=== PATIENT | male | born 1990 | race Two or more races ===

== ENCOUNTER 2024-08-25 11:07 | Outpatient (AMB) | payer OTHER, SELFPAY ==
--- NOTE | 2024-08-25 11:10 | MHC.PC.OV ---
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 Intake Note: patient here for new patient visit [employer] Required: No Allergies cefaclor [From Ceclor] Allergy (Mild, Verified 08/25/24 11:44) hives Medication List - Last Reconciled 08/25/24 by Baldomero Kaiser CNP clonidine 1 patch topical QWEEK valsartan 80 mg PO DAILY Tobacco use date assessed: 08/25/24 Dental Screening Dental Screen Date: 08/25/24 Did you have a dental visit in the last 12 months?: No Did you have a dental problem in the last 6 months where you did not have access to dental care?: No Was dental information given to patient?: Yes HPI HPI Comments History of Present Illness Details 34-year-old male presents to [facility]. Prior PCP? - [facility] Last office visit and labs - 02/2024 Acute issue(s) - HTN: He is on valsartan 80 mg daily and clonidine 0.2 mg patch weekly Past Medical History - Hypertension, GERD, polycystic kidney disease, myopia, anxiety (controlled, never been on meds, no psych hosp, no therapist or psychiatrist) Surgical History - None Family History - Dad: Alcohol abuse - MGM: She has diabetes Social History - Nonsmoker. Does not vape. Drinks 4 mixed drinks once weekly. Smokes 0.5-1g cannabis daily - Has been making healthy dietary choices. Exercises routinely. Generally sleep well Health maintenance - Last eye exam was 2 years ago with my Anabell Manzo. Encouraged to schedule an appointment for a new eye exam - Last dental visit was over 10 years ago; encouraged to schedule an appointment with his dentist for routine dental care - Last tetanus vaccine was more than 10 years ago; declined Tdap vaccine today - Has not been vaccinated for the flu this season; received vaccination today Specialists Dr [facility], [facility] - followed every 6 months [facility] Medical History (Updated 08/25/24 @ 12:14 by Mohamed Job, CUSTOM MOTORCYCLE PAINTER) Anxiety Polycystic kidney disease History of gastroesophageal reflux (GERD) High blood pressure Family History (Updated 08/25/24 @ 11:26 by Paty Figueredo MA) Father Alcohol abuse Maternal Grandmother Diabetes Brother Asthma Social History (Updated 08/25/24 @ 11:18 by Paty Figueredo MA) Housing: Apartment Patient Tobacco Use Status: Never used Tobacco e-Cigarette/Vaping Use: Never Used Second Hand Smoke Exposure: No Substance Use Type: Marijuana service: No Current occupational status: employed Current occupation: [employer] Current occupational exposures/hazards: Yes Cognitive needs: No Hearing needs: No Vision needs: Yes Questionnaire PHQ-9 Over the last 2 weeks, how often have you been bothered by any of the following problems? 1. Little interest or pleasure in doing things: more than half the days 2. Feeling down, depressed, or hopeless: several days 3. Trouble falling or staying asleep, or sleeping too much: more than half the days 4. Feeling tired or having little energy: more than half the days 5. Poor appetite or overeating: not at all 6. Feeling bad about yourself - or that you are a failure or have let yourself or your family down: not at all 7. Trouble concentrating on things, such as reading the newspaper or watching television: not at all 8. Moving or speaking so slowly that other people could have noticed. Or the opposite - being so fidgety or restless that you have been moving around a lot more than usual: not at all 9. Thoughts that you would be better off or of hurting yourself in some way: not at all Total score: 7 Depression Screening Interpretation: Positive Depression Screening Done: Yes 94991 - PHQ-9 Billing: Yes Source: Developed by Drs. Favian Soler, Cristin Moran, Arnie Ortiz and colleagues, with an educational aleks from [employer]. Thrive Questionnaire Date Thrive assessed: 08/25/24 I am a: Patient What is your living situation today?: I have a steady place to live Within the past 12 months, did the food you bought not last and you didn't have the money to get more?: Never true Within the past 12 months, did you worry whether your food would run out before you got money to buy more?: Never true Do you have trouble paying for medicines?: Yes Do you have trouble getting transportation to medical appointments?: No Do you have trouble paying your heating and electricity bill?: No Do you have trouble taking care of your child, family member or friend?: No Do you have trouble with day-to-day activities such as bathing, preparing meals, shopping, managing finances, etc.?: No Are you currently unemployed and looking for a job?: No Are you interested in more education?: No Please select the resources that you would like help with: None Currently or been in a relationship where the following occur: No concerns reported THRIVE Score: 0 AUDIT C Alcohol Use Questionnaire (AUDIT-C) 1. How often do you have a drink containing alcohol?: 2-4 times a month 2. How many drinks containing alcohol do you have on a typical day when you are drinking?: 3 or 4 3. How often do you have six or more drinks on one occasion?: Less than monthly Total Score: 4 Score Reviewed/Action Taken: Yes JOSE-7 AMB Questionnaire JOSE-7 Date JOSE - 7 assessed: 08/25/24 Feeling nervous, anxious, or on edge: 1 = Several days Not being able to stop or control worryin = Several days Worrying too much about different things: 1 = Several days Trouble relaxin = Several days Being so restless that it is hard to sit still: 0 = Not at all Becoming easily annoyed or irritable: 1 = Several days Feeling afraid as if something awful might happen: 0 = Not at all Total JOSE-7 score (0-4 normal; 5-9 mild; 10-14 moderate; 15-21 severe): 5 Source: Developed by Drs. Favian Soler, Cristin Moran, Arnie Ortiz and colleagues, with an educational aleks from [employer]. JOSE-7 Assessment Billing JOSE-7 Assessment Tool: JOSE-7 Assessment 30849 Review of Systems Const Details: Denies chills, Denies fatigue, Denies fever(s), Denies headache(s) and Denies weakness HEENT Denies change in vision, Denies dizziness, Denies headache(s), Denies hearing loss, Denies nasal congestion, Denies sinus pain, Denies sinus pressure and Denies sore throat Card Denies chest pain, Denies lightheadedness, Denies dyspnea and Denies other (palpitations) Resp Denies cough, Denies dyspnea and Denies wheezing GI Denies abdominal pain, Denies melena, Denies hematochezia, Denies change in bowel habits, Denies dyspepsia and Denies nausea Denies hematuria and Denies dysuria Musc Denies abnormal gait, Denies myalgias, Denies arthralgias, Denies numbness and Denies tingling Skin/Breast Denies rash, Denies unusual bruising and Denies wounds Neuro Denies abnormal gait, Denies dizziness, Denies headache(s), Denies memory loss, Denies numbness, Denies Sensory deficit (Neuro), Denies tingling and Denies weakness Psych Denies anxiety, Denies depression and Denies memory loss Endo Denies cold intolerance, Denies fatigue, Denies heat intolerance, Denies polydipsia and Denies polyuria Luis Fernando/Lymph Denies easy bleeding and Denies easy bruising Aller/Immun Denies wheezing Physical exam (Primary Care) Vital Signs: Last Vital Signs Temp 97.9 F 08/25/24 11:19 Pulse 55 08/25/24 11:19 Resp 16 08/25/24 11:19 BP 150/100 H 08/25/24 11:48 Pulse Ox 100 08/25/24 11:19 Oxygen Delivery Method Room Air 08/25/24 11:19 BMI result Body Mass Index 28.3 Tobacco/Smoking Status: Tobacco use Status Tobacco use date assessed 08/25/24 08/25/24 11:18 Patient Tobacco Use Status Never used Tobacco 08/25/24 11:18 e-Cigarette/Vaping Use Never Used 08/25/24 11:18 PHQ-9: PHQ-9 Score PHQ-9: Total score 7 08/25/24 12:14 Depression Screening Interpretation: Positive Thrive Assessment: Date of Thrive Assessment Date Thrive assessed 08/25/24 08/25/24 11:13 Currently or been in a relationship where the following occur: No concerns reported Const Other: General: no acute distress, well developed, alert and awake Nutritional Appearance: well nourished Orientation/consciousness: patient oriented x3 HENMT Head: Yes normocephalic and Yes atraumatic Ears: hearing grossly normal bilaterally and TM's normal bilaterally General nose exam: Normal external nose present and Normal nares present Mouth: Normal oral and palatal mucosa present and moist mucous membranes Teeth and gingiva: dentition normal Throat: Yes oropharynx normal Eyes Pupils: Equal, round and reactive pupils present and Pupil accommodation reflex normal EOM: EOMs intact bilaterally Neck Neck: Yes normal visual inspection, Yes no lymphadenopathy and Yes trachea midline Thyroid: Thyroid normal Carotids: no bruits Lymphatic: no lymphadenopathy noted Chest Chest palpation & inspection: normal inspection of the chest Resp Effort & Inspection: normal respiratory effort Auscultation: clear to auscultation bilaterally Cardio Rate: regular rate Rhythm: regular rhythm Heart sounds: S1 normal heart sound present, S2 normal heart sound present, no gallops, no murmurs and no rubs Bruits: no abdominal aortic bruits and no carotid bruits GI Palpation (GI): No Abdominal aortic bruit present, Soft to palpation, nontender, No hepatosplenomegaly present and No Rebound tenderness present Auscultation: normal bowel sounds General: Yes no CVA tenderness Back/Spine/Pelvis Back: no CVA tenderness Cervical Spine: cervical ROM normal and No Cervical spine tenderness Thoracic/Lumbar Spine: thoraco-lumbar ROM normal, No pain with thoraco-lumbar ROM, No thoracic spinal tenderness and No lumbar spinal tenderness Skin General: warm and dry. Normal skin color. Normal skin turgor Lesions: no lesions Rashes: no rashes Trauma: no lacerations or abrasions Wounds: no wounds Nails: normal Neuro General: patient oriented x3, gait normal and CN's II-XI intact bilaterally Cranial nerves: Yes Equal, round and reactive pupils present Cognition (Neuro): normal cognition Gait exam (Neuro): Normal gait present Motor exam (neuro): 5/5 motor strength present throughout Sensory Exam: No Sensory deficit (Neuro) Deep tendon reflexes (DTR's): Right patellar reflex intensity grade: 2+ and Left patellar reflex intensity grade: 2+ Extrem General: Yes normal to inspection, No edema and No calf tenderness Psych Appearance: grossly normal Affect: normal affect Attitude: cooperative Thought process: Normal thought process present Office Procedures Flu Questionnaire Does the patient have a severe egg allergy?: No Does the patient have severe life threatening allergies?: No Does the patient have a fever or illness today?: No Has the patient ever had Guillain-[place] Syndrome?: No Has the patient ever had any past reaction to a flu shot?: No Immunizations Fluarix Triv 0313-2549 (PF) 45 mcg (15 mcg x 3)/0.5 mL IM syringe Performing Provider: Baldomero Kaiser CNP Performing Location: [facility] Administered by: Anay Orozco RN on 08/25/24 12:14 Dose Route Admin Location Dispensed Lot Number Expiration Date NDC Tie Carrier 0.5 mL IM Left Deltoid 0.5 mL [id number] 10/19/24 [id number] Purch VIS Given Date VIS Provided VIS Publication Date 08/25/24 Single Vaccine 20 Eligibility Eligibility Date Funding Source Not [facility] Eligible 08/25/24 Private Coding Level of Care Code New Pt Level 4 (50606) New Pt Prev Care 18-39yr(64934 Diagnoses Normal physical examination, routine Z00.00 High blood pressure I10 Polycystic kidney disease Q61.3 Anxiety F41.9 Laboratory tests ordered as part of a complete physical exam (CPE) Z00.00 Additional Codes JOSE-7 Assessment Billing - JOSE-7 Assessment Tool: JOSE-7 Assessment 47486 ([id number]) PHQ-9 - 86368 - PHQ-9 Billing: Yes ([id number]) Assessment & Plan Assessment & Plan (1) Normal physical examination, routine: Code(s): Z00.00 - Encounter for general adult medical examination without abnormal findings Category: Medical Plan: No significant functional limitations noted. Healthy diet and routine exercise encouraged. Perform lab work and follow-up in 2 weeks for hypertension and labs review. Return sooner with symptoms or concerns. Verbalized understanding and agreed with the plan. (2) High blood pressure: Code(s): I10 - Essential (primary) hypertension Category: Medical Plan: Resting blood pressure is 150/100, above goal of less than 140/90. Will stop clonidine 0.2 mg patch at this time. Clonidine 0.1 mg daily at bedtime ordered; advised to take as prescribed. Instructed on the risks, benefits, and potential adverse reactions of the medication. Continue to take valsartan 80 mg daily. Low-sodium diet encouraged. Monitor blood pressure 2-3 times weekly and inform PCP of readings consistently above 140/90. Follow-up with Nephrology as planned. Follow-up with PCP in 2 weeks or sooner with symptoms or concerns. Verbalized understanding and agreed with the plan. (3) Polycystic kidney disease: Code(s): Q61.3 - Polycystic kidney, unspecified Category: Medical Plan: Followed by nephrology. (4) Anxiety: Code(s): F41.9 - Anxiety disorder, unspecified Category: Medical Plan: Reports controlled anxiety symptoms. He has never been on psychotropic medications. No history of psychiatric hospitalization. He has never been followed by a therapist or psychiatrist. JOSE-7 score revealed mild anxiety. Routine exercise encouraged. Follow-up as needed. Verbalized understanding and agreed with the plan. (5) Laboratory tests ordered as part of a complete physical exam (CPE): Code(s): Z00.00 - Encounter for general adult medical examination without abnormal findings Category: Medical Plan: Fasting labs ordered as part of a complete physical exam. Advised to fast for at least 10 hours before getting labs drawn. May drink water Verbalized understanding and agreed with treatment plan. Orders: Orders Complete Blood Count Auto Diff Today Z00.00 - Encounter for general adult medical examination without abnormal findings Comprehensive [place]. Panel Fast Today Z00.00 - Encounter for general adult medical examination without abnormal findings Microalbumin, Random (w Creat) Today Z00.00 - Encounter for general adult medical examination without abnormal findings TSH reflex Free T4 Today Z00.00 - Encounter for general adult medical examination without abnormal findings UA CC w/rflx Micro + Cult Today Z00.00 - Encounter for general adult medical examination without abnormal findings Influenza [id number] Immunization Today Z23 - Encounter for immunization Lipid Panel Today Z00.00 - Encounter for general adult medical examination without abnormal findings Vitamin D 25-OH Total Today Z00.00 - Encounter for general adult medical examination without abnormal findings Medications: New clonidine HCl 0.1 mg PO BEDTIME 30 tabs 3RF 30 days
[2024-08-25 11:19] VITALS: BP 166/98; PULSE 55; RESP 16; TEMP 36.6; O2SAT 100; BMI 28.3
[2024-08-25 11:48] VITALS: BP 150/100
--- OUTSIDE RECORDS SUMMARY | 2024-08-25 12:54 | XMS_ITS | Encounter Summary ---
Author Organization [facility] Address [address] [place] [id number] Phone Care Team Providers Care Venetian Blind Worker Name Role Phone Unavailable Primary Care Provider Unavailabl e Encounter Details Date Type Department Care Team (Late st Contact Info) Description 09/08/2017 Conversion Encounter [facility] [address] [address] Social History Tobacco Use Types Packs/Day Years Used Date Smoking Tobacco: Never Assessed Sex and Gender Information Value Date Recorded Sex Assigned at Not on file Legal Sex Male 6:28 PM EDT Gender Identity Not on file Sexual Orientation Not on file documented as of this encounter Plan of Treatment Not on file documented as of this encounter Visit Diagnoses Not on filedocumented in this encounter
--- OUTSIDE RECORDS SUMMARY | 2024-08-25 12:54 | XMS_ITS | Clinical Summary ---
Author Organization [facility] Address [address] [place] [phone] Phone Care Team Providers Care Filler Leaf Cutter Long Name Role Phone Unavailable Primary Care Provider Unavailabl e Immunizations Immunization Administration Dates Next Due DTaP 08/13/1996, 3,03/28/1992,02/08,1991 Hep B, ped/adol 1994,1991,1991 Hib (PRP-T) 12/27/1992, 2,02/09/1992,10/07 Influenza, injectable, quadrivalent 01/10/2010,0 01/05/2009 MMR 08/13/1996,12/27/1992 Meningococcal Conj (Menactra) MCV4P 02/26/2006 OPV 08/13/1996, 3,02/09/1992,10/07 Td (adult) (Tenivac), 5 Lf t etanus toxoid, PF, adsorbed 08/11/2001 Tdap 01/05/2009 Varicella 08/20/1992 Family History Relation Name Status Comments Father Alive healthy Maternal Grandfather ? unkno wn type of CA Maternal Grandmother Alive DM Mother Alive healthy age: 49 Other Alive Siblings: asthm a Social History Tobacco Use Types Packs/Day Years Used Date Smoking Tobacco: Never Assessed Sex and Gender Information Value Date Recorded Sex Assigned at Not on file Legal Sex Male 6:28 PM EDT Gender Identity Not on file Sexual Orientation Not on file Last Filed Vital Signs Vital Sign Reading Time Taken Comments Blood Pressure 120/70 01/10/2010 12:00 AM EDT Pulse - - Temperature - - Respiratory Rate - - Oxygen Saturation - - Inhaled Oxygen Concentration - - Weight 79.1 kg (174 lb 6.4 oz) 01/10/2010 12:00 AM EDT Height 177.8 cm (5' 10 ) 01/10/2010 12:00 AM EDT Body Mass Index 25.02 01/10/2010 12:00 AM EDT Plan of Treatment Health Maintenance Due Date Last Done Comments Varicella Vaccines (2 of 2 - 2-dose childhood series) 09/10/1996 08/20/1992 DTaP,Tdap,and Td Vaccines (7 - Td or Tdap) 01/05/2019 01/05/2009, 08/11/2001, 08/13/1996, Additional history exists Influenza Vaccines (#1) 2023 01/10/2010, 01/05 COVID-19 Vaccine ( season) 2023 HIB Vaccines Completed 12/27/1992, 10/1991, 02/09/1992, Additional history exists Hepatitis B Vaccines Completed 1994, 1991, 1991 IPV Vaccines Completed 08/13/1996, 03/23, 02/09/1992, Additional history exists MMR Vaccines Completed 08/13/1996, 12/27/1992 Meningococcal Vaccine Aged Out 02/26/2006 No maylin matteo eligible based on patient's age to complete this topic HPV Vaccines Aged Out No longer eligi ble based on patient's age to complete this topic Hepatitis A Vaccines Aged Out No long er eligible based on patient's age to complete this topic Men B Vaccine Aged Out No longer elig ible based on patient's age to complete this topic Pneumococcal Vaccine Aged Out No long er eligible based on patient's age to complete this topic
== END 2024-08-25 12:15 | disposition home or self-care (01) ==
LOC: HO.HMCFM 11:08
PROVIDERS: PCP Nurse Practitioner Family; Visit Provider Nurse Practitioner Family
DX: Z00.00 Encounter for general adult medical examination without abnormal findings (principal); I10 Essential (primary) hypertension; Q61.3 Polycystic kidney, unspecified; F41.9 Anxiety disorder, unspecified; Z23 Encounter for immunization

== ENCOUNTER → 2024-08-25 11:07 | Outpatient (BNVA) | payer OTHER, SELFPAY | PROVIDERS: PCP Nurse Practitioner Family; Visit Provider Nurse Practitioner Family | DX: Z00.00 Encounter for general adult medical examination without abnormal findings (principal); Z23 Encounter for immunization; I10 Essential (primary) hypertension; F41.9 Anxiety disorder, unspecified; Q61.3 Polycystic kidney, unspecified; Z79.899 Other long term (current) drug therapy | CPT/HCPCS: 90471; 90656; 96127 ==

== ENCOUNTER 2024-09-07 13:06 | Outpatient (REF) | payer OTHER, SELFPAY ==
--- OUTSIDE RECORDS SUMMARY | 2024-09-07 13:10 | XMS_ITS | Clinical Summary ---
Author Organization [facility] Address [address] [place] [phone] Phone Care Team Providers Care Student Services Advisor Name Role Phone Unavailable Primary Care Provider [...]
--- OUTSIDE RECORDS SUMMARY | 2024-09-07 13:10 | XMS_ITS | Clinical Summary ---
Demographics Address [address] [place] [address] Home Phone Mobile Phone Email Address Preferred Language en Marital Status Single Caodaism Affiliation Unknown Race Unknown Ethnic Group Not or Lati no Author Organization 175 [facility] Address [address] [place] [address] Phone Care Team Providers Care Pouncing Machine Operator Name Role Phone Neo Gutierrez MD Primary Care Provider Allergies Active Allergy Reactions Criticality Noted Date Comments Cefaclor 08/15/2010 Unknown, told in childhood Medications acetaminophen (TYLENOL) 500 mg tablet Take 1 tablet (500 mg total) by mouth every 6 (six) hours if needed. Active cloNIDine (GXSLYPCA-JNA-8) 0.2 mg/[address] 1 patch on the skin 1 (one) time per week. 11/13/2023 Active esomeprazole magnesium (NEXIUM ORAL) Take by mouth 1 (one) time each day. Active amLODIPine (NORVASC) 10 mg tablet TAKE 1 TABLET BY MOUTH EVERY DAY 90 tablet 1 04/09/2024 Active valsartan (DIOVAN) 80 mg tablet Take 1 tablet (80 mg total) by mouth 1 (one) time each day. 90 each 3 06/17/2024 Active Active Problems Problem Noted Date Diagnosed Date Chest pain 01/27/2024 Overview (04/02/2024): 09/12 stress ECHO unremarkable, but couldn't tolerate exercise due to BP elevation; if next test needed, advised to order dobutamine stress SCHO JOSE (generalized anxiety disorder) 08/05/2017 Polycystic kidney disease 06/03/2017 Hypertension, renal disease 07/09/2013 Encounters Date Type Department Care Team Description 06/17/2024 3:15 PM EST Office Visit Nephrology [facility] [place] [address] [place] [id number] Raymundo Smith MD Polycystic kidney disease (Primary Dx); Hypertension, renal disease from Last 3 Months Immunizations Name Administration Dates Next Due DTP 02/08/1997, 3,03/28/1992,10/07 DTaP (Infanrix) 6wks to less than 7yo 08/13/1996 [id number] (Pentacel) 2mo to less than 5yo 12/27/1992,03/28/1992,02/09/1992,10/07 Hepatitis B Pediatric (Enger ix B; Recombivax HB) to less than 20 yo 1994,1991,1991 Influenza trivalent, 0.5mL, preservative free (Fluarix; FluLaval; Fluzone) ages 6mo and older (Afluria) 3 years and older 06/09/2013,01/10/2010,01/05/2009 MMR, measles mumps and rubel la Live (Priorix; M-M-R II) 12mo and older 08/13/1996,12/27/1992 Meningococcal MCV4P 02/26/2006 OPV 08/13/1996, 3,02/09/1992,10/07 Td Tetanus diptheria (Tdvax) 7yo and older 08/11/2001 Tdap Tetanus diptheria acell ular pertussis (Boostrix; Adacel) 7yo and older 01/05/2009 Surgical History Surgery Date Site/Laterality Comments OTHER SURGICAL HISTORY PROCEDURE: DENIES PREVIOUS SURGERY Medical History Medical History Date Comments Elevated blood pressure 01/07/2013 DX:[place] moriah blood pressure Family History Medical History Relation Name Comments Other cancer Maternal Grandfather Diabetes Maternal Grandmother Relation Name Status Comments Brother Alive Asthma Father Alive A&W Maternal Grandfather CA Maternal Grandmother Alive DM Mother Alive A&W Paternal Grandfather Alive healthy Paternal Grandmother Alive healthy Sister Alive Anxiety Social History Tobacco Use Types Packs/Day Years Used Date Smoking Tobacco: Never Smokeless Tobacco: Never Alcohol Use Standard Drinks/Week Comments Yes 3.3 (1 standard drink = 0.6 oz p ure alcohol) Sex and Gender Information Value Date Recorded Sex Assigned at Not on file Legal Sex Male 11:45 PM EST Gender Identity Not on file Sexual Orientation Not on file Obstetrics History Last Filed Vital Signs Vital Sign Reading Time Taken Comments Blood Pressure 133/93 06/17/2024 3:16 PM EST Pulse 64 06/17/2024 3:16 PM EST Temperature - - Respiratory Rate - - Oxygen Saturation - - Inhaled Oxygen Concentration - - Weight 86.5 kg (190 lb 12.8 oz) 06/17/2024 3:16 PM EST Height 175.3 cm (5' 9 ) 01/27/2024 9:48 AM EDT Body Mass Index 28.18 01/27/2024 9:48 AM EDT Plan of Treatment Upcoming Encounters Date Type Department Care Team (Late st Contact Info) Description 01/13/2025 2:00 PM EDT Office Visit Nephrology - [place] [address] [place] [address] Raymundo Smith MD 100 [facility] [address] [place] [address] Health Maintenance Due Date Last Done Comments DTaP,Tdap,and Td Vaccines (8 - Td or Tdap) 01/05/2019 01/05/2009, 08/11/2001, 02/08/1997, Additional history exists Depression Screening 05/26/2023 HIV Screening 05/26/2023 Hepatitis C Screening 05/26/2023 Social Influencers of Health Screening 05/26/2023 COVID-19 Vaccine ( season) 2023 Influenza Vaccine (Season Ended) 2024 06/09/2013, 01/10/2010, 01/05/2009 Cholesterol Screening (Lipid Panel) 07/25/2028 07/26/2023 Varicella Vaccines Aged Out 08/20/1992 No longer eligible based on patient's age to complete this topic HIB Vaccines Completed 12/27/1992, 10/1992, 03/28/1992, Additional history exists Hepatitis B Vaccines Completed 1994, 1991, 1991 IPV Vaccines Completed 08/13/1996, 03/23, 12/27/1992, Additional history exists MMR Vaccines Completed 08/13/1996, 12/27/1992 Meningococcal ACWY Vaccine Aged Out 02/26/2006 N o longer eligible based on patient's age to complete this topic HPV Vaccines Aged Out No longer eligi ble based on patient's age to complete this topic Hepatitis A Vaccines Aged Out No long er eligible based on patient's age to complete this topic Meningococcal B Vaccine Aged Out No l onger eligible based on patient's age to complete this topic Pneumococcal Vaccine: Pediatrics (0 to 5 Years) and At-Risk Patients (6 to 64 Years) Aged Out No longer eligible based on patient's age to complete this topic RSV Immunization Patients Under 20 months Aged Out No longer eligible based on patient's age to complete this topic Procedures Procedure Name Priority Date/Time Associated Diagnosis Comments LIPID PANEL Routine 07/26/2023 from Last 3 Months or Most Recently Relevant to Health Maintenance Results * (ABNORMAL) Lipid panel (07/26/2023) LDL/HDL Ratio 4 0 - 4 Triglycerides 175(A) 0 - 150 mg/dL Cholesterol 164 0 - 200 mg/dL HDL 47 >=40 mg/dL LDL Cholesterol 82 0 - 100 mg/dL Blood Venous blood specimen / Unknown Historical Provider LAB BLOOD ORDERABLES Lilliana l Result from Last 3 Months or Most Recently Relevant to Health Maintenance Insurance * Guarantor: Vikram Allan Account Type Relation to Patient Date of Phone Billing Address Personal/Family Self 1990 [address] [place] [address] [facility] Care Teams Pouncing Machine Operator Relationship Specialty Start Date End Date Neo Gutierrez MD 175 [facility] [address] [id number] PCP - General Internal Medicine 02/07/24
--- OUTSIDE RECORDS SUMMARY | 2024-09-07 13:10 | XMS_ITS | Encounter Summary ---
Author Organization [facility] Address [address] [place] [id number] Phone Care Team Providers Care Engraver Copperplate Name Role Phone Unavailable Primary Care Provider Unavailabl e Encounter Details Date Type Department Care Team (Late st Contact Info) Description 09/08/2017 Conversion Encounter [facility] [address] [address] Social History Tobacco Use Types Packs/Day Years [...]
[2024-09-07 14:32] LABS: MANUAL DIFF FLAG NO
[2024-09-07 14:34] LABS: Appearance Urine Clear; Color Urine Yellow; Glucose Urine UA Negative (Negative); Leukocyte Esterase Urine Small (1+) (Negative); Nitrite Urine Negative (Negative); Specific Gravity - Urine 1.015 (1.005-1.025); UMIC TRIGGER UACC YES; Urine Blood Negative (Negative); Urine Ketones Negative (Negative); Urine Protein 30 (1+) mg/dL (Neg-Trace)
[2024-09-07 14:39] LABS: Bacteria Urine Trace (None Seen); Hyaline Casts Urine 0-2 /LPF (0-2); RBC Urine 0-2 /HPF (0-2); UACC Culture Trigger YES
[2024-09-07 14:41] LABS: Basophils Percent Auto 0.6 % (0-2); Eosinophils Absolute Auto 0.3 X10*3/uL (0.0-0.4); Eosinophils Percent Auto 5.7 % (0-4); Hematocrit 40.9 % (42.0-52.0); Hemoglobin 12.7 g/dl (14.0-18.0); Imm Gran Abs Auto 0.02 X10*3/uL (0.00-0.03); Imm Gran Pct Auto 0.4 % (0.0-0.4); Lymphocytes Absolute Auto 1.3 X10*3/uL (1.2-4.9); Lymphocytes Percent Auto 26.2 % (20-40); Mean Corpuscular HGB Conc 31.1 g/dl (31.0-36.0); Mean Corpuscular Hemoglobin 25.8 pg (27.0-33.0); Mean Corpuscular Volume 83.1 fL (80.0-98.0); Monocytes Absolute Auto 0.5 X10*3/uL (0.1-1.2); Neutrophils Percent Auto 58.1 % (45-73); Platelet Count 246 X10*3/uL (160-400); Red Blood Count 4.92 X10*6/uL (4.60-5.80); Red Cell Distribution Width 14.1 % (11.0-16.0); White Blood Count 5.1 X10*3/uL (4.8-10.8)
[2024-09-07 14:46] LABS: Creatinine Urine 105.26 mg/dL; Microalbum/Creatinine Ratio Ur 115.9 ug/mg cr (<30)
[2024-09-07 15:06] LABS: Alanine Aminotransferase 17 U/L (0-40); Albumin Level 4.1 g/dL (3.5-5.0); Alkaline Phosphatase 76 U/L (39-117); Anion Gap 9 (12-20); Aspartate Amino Transferase 21 U/L (5-37); Bilirubin Total 0.2 mg/dL (0.0-1.0); Blood Urea Nitrogen 29 mg/dL (9-16); Calcium 8.6 mg/dL (8.4-10.2); Carbon Dioxide 26 mmol/L (22-29); Chloride 108 mmol/L (96-108); Cholesterol 159 mg/dL (<200); Estimated Glomerular Filt Rate 42; Glucose Fasting 85 mg/dL (60-99); HDL Cholesterol 52 mg/dL (>40); LDL Cholesterol Calculated 86 mg/dL (<100); Potassium 4.4 mmol/L (3.3-5.1); Sodium 139 mmol/L (135-145); Total Protein 7.3 g/dL (6.5-8.0); Triglycerides 109 mg/dL (<150)
== END 2024-09-07 13:07 | disposition home or self-care (01) ==
LOC: HO.WFDLDS 13:06
PROVIDERS: Visit Provider Nurse Practitioner Family
DX: Z00.00 Encounter for general adult medical examination without abnormal findings (principal)
CPT/HCPCS: 36415; 80053; 80061; 81001; 82043; 82306; 82570; 84443; 85025; 87086

== ENCOUNTER 2024-09-28 13:41 | Outpatient (REF) | payer OTHER, SELFPAY ==
[2024-09-28 17:43] LABS: MANUAL DIFF FLAG NO
[2024-09-28 17:49] LABS: Basophils Absolute Auto 0.1 X10*3/uL (0.0-0.2); Basophils Percent Auto 0.3 % (0-2); Eosinophils Absolute Auto 0.1 X10*3/uL (0.0-0.4); Eosinophils Percent Auto 0.7 % (0-4); Hematocrit 41.4 % (42.0-52.0); Hemoglobin 12.9 g/dl (14.0-18.0); Imm Gran Abs Auto 0.06 X10*3/uL (0.00-0.03); Imm Gran Pct Auto 0.4 % (0.0-0.4); Lymphocytes Absolute Auto 0.6 X10*3/uL (1.2-4.9); Lymphocytes Percent Auto 4.1 % (20-40); Mean Corpuscular HGB Conc 31.2 g/dl (31.0-36.0); Mean Corpuscular Hemoglobin 25.8 pg (27.0-33.0); Mean Corpuscular Volume 82.8 fL (80.0-98.0); Mean Platelet Volume 11.2 fL (9.4-12.4); Monocytes Absolute Auto 0.7 X10*3/uL (0.1-1.2); Neutrophils Absolute Auto 13.3 x10*3/uL (2.0-8.3); Neutrophils Percent Auto 89.5 % (45-73); Platelet Count 230 X10*3/uL (160-400); Red Cell Distribution Width 14.6 % (11.0-16.0); White Blood Count 14.9 X10*3/uL (4.8-10.8)
[2024-09-28 17:52] LABS: Appearance Urine Clear; Color Urine Yellow; Glucose Urine UA Negative (Negative); Leukocyte Esterase Urine Trace (Negative); Nitrite Urine Negative (Negative); PH 6.5 (5.0-9.0); Specific Gravity - Urine 1.015 (1.005-1.025); UMIC TRIGGER UACC YES; Urine Blood Negative (Negative); Urine Ketones Negative (Negative); Urine Protein Trace mg/dL (Neg-Trace)
[2024-09-28 17:56] LABS: Bacteria Urine None Seen (None Seen); Hyaline Casts Urine 0-2 /LPF (0-2); RBC Urine 0-2 /HPF (0-2); Squamous Epithelial Cell Urine 0-2 /HPF (0-2); WBC Urine 0-5 /HPF (0-5)
[2024-09-28 18:09] LABS: Creatinine Urine 90.22 mg/dL; Microalbum/Creatinine Ratio Ur 109.7 ug/mg cr (<30)
[2024-09-28 18:15] LABS: Anion Gap 13 (12-20); Blood Urea Nitrogen 29 mg/dL (9-16); Calcium 9.2 mg/dL (8.4-10.2); Carbon Dioxide 27 mmol/L (22-29); Chloride 104 mmol/L (96-108); Estimated Glomerular Filt Rate 45; Glucose Random 97 mg/dL (60-115); Iron 17 mcg/dL (45-160); Percent Iron Saturation 6 % (15-50); Potassium 4.5 mmol/L (3.3-5.1); Sodium 139 mmol/L (135-145); Total Iron Binding Capacity 276 mcg/dL (228-428); Unsaturated Iron Binding 259 ug/dL
[2024-09-28 18:17] LABS: Ferritin 96 ng/mL (20-250); Vitamin D 25-OH Total 15.2 ng/mL (>30)
[2024-09-28 18:23] LABS: Influenza A PCR NEGATIVE (Negative); Influenza B PCR NEGATIVE (Negative); Resp Syncy Virus RNA Qual PCR NEGATIVE (Negative); SARS COV2 PCR INHOUSE NEGATIVE (Negative)
[2024-09-28 18:30] LABS: Folate 6.8 ng/mL (> or = 4.0); Vitamin B12 301 pg/mL (200-900)
== END 2024-09-28 13:42 | disposition home or self-care (01) ==
LOC: HO.LAB 13:41
PROVIDERS: PCP Nurse Practitioner Family; Visit Provider Nurse Practitioner Family
DX: I10 Essential (primary) hypertension (principal); E55.9 Vitamin D deficiency, unspecified; D64.9 Anemia, unspecified; N28.9 Disorder of kidney and ureter, unspecified; R80.9 Proteinuria, unspecified; B34.9 Viral infection, unspecified
CPT/HCPCS: 0241U; 80048; 81001; 82043; 82306; 82570; 82607; 82728; 82746; 83540; 85025

== ENCOUNTER 2024-09-28 13:41 | Outpatient (AMB) | payer OTHER, SELFPAY ==
--- NOTE | 2024-09-28 13:42 | A.OFFPC_ITS ---
Vital Signs 09/28/24 13:53 09/28/24 14:28 Height 5 ft 9 in Weight 200 lb 2 oz BMI 29.6 BP 155/95 H 130/100 H Blood Pressure Location Rt brachial Rt brachial Position Sitting Sitting Respiration 16 Pulse 88 Pulse Source Pulse Oximeter Temp 101.1 F H Temp Source Oral Pulse Oximetry (%) 98 Oxygen Delivery Method Room Air Intake Visit Reasons: F/U LABS and meds Intake Note: patient here for follow up and meds c/o sore throat Pharmaceutical Scientist Required: No Allergies cefaclor [From Ceclor] Allergy (Mild, Verified 09/28/24 14:03) hives Medication List - Last Reconciled 09/28/24 by Baldomero Kaiser CNP cholecalciferol (vitamin D3) 1,250 mcg PO QWEEK 8 weeks clonidine HCl 0.1 mg PO BEDTIME 30 days valsartan 80 mg PO DAILY Tobacco use date assessed: 09/28/24 Dental Screening Dental Screen Date: 09/28/24 Did you have a dental visit in the last 12 months?: No Did you have a dental problem in the last 6 months where you did not have access to dental care?: No Was dental information given to patient?: No (already gave the list) HPI HPI Comments History of Present Illness Details 34-year-old male presents for hypertensi on and review of recent lab results. He admits to taking his medications as prescribed without adverse reactions. He notes that he has been monitoring his blood pressure in the morning and night, and average between 154-155/100-121. He reports headache, right upper quadrant abdominal pain, left-sided sore throat, and generalized aches upon waking up this morning. He notes that that his symptoms have improved during the course of the day and is is currently experiencing intermittent, mild body aches and frontal/left temporal headache. Denies subjective fever or chills. He has not taken any medication for his symptoms. He denies n/v/d. No sick contact. [facility] Medical History (Updated 09/28/24 @ 14:34 by Baldomero Kaiser CNP) Anxiety Polycystic kidney disease History of gastroesophageal reflux (GERD) High blood pressure Family History (Updated 08/25/24 @ 11:26 by Paty Figueredo MA) Father Alcohol abuse Maternal Grandmother Diabetes Brother Asthma Social History (Updated 08/25/24 @ 11:18 by Paty Figueredo MA) Housing: Apartment Patient Tobacco Use Status: Never used Tobacco e-Cigarette/Vaping Use: Never Used Second Hand Smoke Exposure: No Substance Use Type: Marijuana service: No Current occupational status: employed Current occupation: [employer] Current occupational exposures/hazards: Yes Cognitive needs: No Hearing needs: No Vision needs: Yes Questionnaire Thrive Questionnaire Date Thrive assessed: 08/18/24 I am a: Patient What is your living situation today?: I have a steady place to live Within the past 12 months, did the food you bought not last and you didn't have the money to get more?: Never true Within the past 12 months, did you worry whether your food would run out before you got money to buy more?: Never true Do you have trouble paying for medicines?: Yes Do you have trouble getting transportation to medical appointments?: No Do you have trouble paying your heating and electricity bill?: No Do you have trouble taking care of your child, family member or friend?: No Do you have trouble with day-to-day activities such as bathing, preparing meals, shopping, managing finances, etc.?: No Are you currently unemployed and looking for a job?: No Are you interested in more education?: No Please select the resources that you would like help with: None Currently or been in a relationship where the following occur: No concerns reported THRIVE Score: 0 JOSE-7 AMB Questionnaire JOSE-7 Date JOSE - 7 assessed: 08/25/24 Source: Developed by Drs. Favian Soler, Cristin Moran, Arnie Ortiz and colleagues, with an educational aleks from [employer]. Review of Systems Const Details: Const Denies chills, Denies fatigue, Denies fever(s), Reports headache(s) and Denies weakness ENT Reports as per HPI Card Denies chest pain, Denies lightheadedness, Denies dyspnea and Denies other (Palpitations) Resp Denies cough, Denies dyspnea, Denies wheezing and Denies other ( shortness of breath) GI Denies abdominal pain, Denies melena, Denies hematochezia, Denies change in bowel habits, Denies dyspepsia and Denies nausea Denies hematuria and Denies dysuria Musc Reports myalgias, Denies abnormal gait, Denies numbness and Denies tingling Skin/Breast Denies rash, Denies unusual bruising and Denies wounds Neuro Denies abnormal gait, Denies dizziness, Reports headache(s), Denies memory loss, Denies numbness, Denies Sensory deficit (Neuro), Denies tingling and Denies weakness Psych Denies anxiety, Denies depression, Denies memory loss Endo Denies cold intolerance, Denies fatigue, Denies heat intolerance, Denies p olydipsia and Denies polyuria Aller/Immun Denies wheezing Physical exam (Primary Care) Vital Signs: Last Vital Signs Temp 101.1 F H 09/28/24 13:53 Pulse 88 09/28/24 13:53 Resp 16 09/28/24 13:53 BP 155/95 H 09/28/24 13:53 Pulse Ox 98 09/28/24 13:53 Oxygen Delivery Method Room Air 09/28/24 13:53 BMI result Body Mass Index 29.6 Tobacco/Smoking Status: Tobacco use Status Tobacco use date assessed 09/28/24 09/28/24 13:56 Patient Tobacco Use Status Never used Tobacco 09/28/24 13:45 e-Cigarette/Vaping Use Never Used 09/28/24 13:45 Thrive Assessment: Date of Thrive Assessment Date Thrive assessed 08/18/24 09/28/24 13:45 Currently or been in a relationship where the following occur: No concerns reported Const Other: General: no acute distress and well developed Nutritional Appearance: well nourished Orientation/consciousness: patient oriented x3 HENMT Head is normocephalic Bilateral ear canal and TM are normal Nasal turbinates and oropharynx are pink and moist. Tonsils without erythema, edema, exudate, or patches Sinuses are nontender with palpation No auricular or cervical lymphadenopathy Eyes General: appearance normal, both eyes and all related structures Pupils: Equal, round and reactive pupils present EOM: EOMs intact bilaterally Resp Effort & Inspection: normal respiratory effort Auscultation: clear to auscultation bilaterally Cardio Rate: regular rate Rhythm: regular rhythm Heart sounds: S1 normal heart sound present, S2 normal heart sound present, no gallops, no murmurs and no rubs GI Palpation (GI): No Abdominal aortic bruit present, Soft to palpation, nontender, No hepatosplenomegaly present and No Rebound tenderness present Auscultation: normal bowel sounds General: Yes no CVA tenderness Back/Spine/Pelvis Back: no CVA tenderness Cervical Spine: cervical ROM normal and No Cervical spine tenderness Thoracic/Lumbar Spine: thoraco-lumbar ROM normal, No pain with thoraco-lumbar ROM, No thoracic spinal tenderness and No lumbar spinal tenderness Extrem General: Yes normal to inspection, No edema and No calf tenderness Skin General: warm and dry. Normal skin color. Normal skin turgor Neuro General: patient oriented x3, gait normal and no focal neuro deficit Cranial nerves: Yes Equal, round and reactive pupils present Cognition (Neuro): normal cognition Gait exam (Neuro): Normal gait present Sensory Exam: No Sensory deficit (Neuro) Psych Appearance: grossly normal Affect: normal affect Attitude: cooperative Thought process: Normal thought process present Coding Level of Care Code Tele New Pt Level 4 (07440) Complex EM visit Add On G2211 Diagnoses High blood pressure I10 Vitamin D deficiency E55.9 Normocytic anemia D64.9 Kidney disease N28.9 Microalbuminuria R80.9 Viral illness B34.9 Assessment & Plan Assessment & Plan (1) High blood pressure: Code(s): I10 - Essential (primary) hypertension Category: Medical Plan: Resting blood pressure is 130/100, above goal of less than 140/90. He notes that he has been monitoring his blood pressure in the morning and night, and average between 154-155/100-121. Will increase valsartan to 160 mg daily; advised to take as prescribed. Continue to take clonidine 0.1 mg every night. Low-sodium diet encouraged. Continue to monitor blood pressure twice daily and report readings consistently above 140/90 or below 100/60. \follow-up in 1 month or sooner with symptoms or concerns. Verbalized understanding and agreed with the plan. (2) Vitamin D deficiency: Code(s): E55.9 - Vitamin D deficiency, unspecified Category: Medical Plan: Vitamin-D level was significantly low, 7.0, about 3 weeks ago. He has not received a notification to supervisor opening and picking vitamin D3 from the pharmacy and therefore has not been taking it since prescribed. Informed that the sun is a good source of vitamin-D. Encouraged to perform vitamin-D blood work today. Will review results and make changes as needed. Verbalized understanding and agreed with the plan. (3) Normocytic anemia: Code(s): D64.9 - Anemia, unspecified Category: Medical Plan: Recent H&H level is slightly low, 12.7/40.9 respectively, MCV is normal. Will recheck CBC and check iron profile, ferritin, vitamin B12, and folate levels. Will make changes as needed. Verbalized understanding and agreed with the plan. (4) Kidney disease: Code(s): N28.9 - Disorder of kidney and ureter, unspecified Category: Medical Plan: Recent. /creatinine is elevated, 29/1.85 respectively. GFR is low, 42. Urine microalbumin/creatinine ratio is elevated, 115.9. Likely dehydration or uncontrolled hypertension. Adequate hydration encouraged. Continue treatment for hypertension. Avoid nephrotoxins such as NSAIDs. Will recheck kidney function and make changes as needed. May refer to Nephrology. Verbalized understanding and agreed with treatment plan. (5) Microalbuminuria: Code(s): R80.9 - Proteinuria, unspecified Category: Medical Plan: Plan as above. (6) Viral illness: Code(s): B34.9 - Viral infection, unspecified Category: Medical Plan: Likely viral illness though possibly allergies. No exam evidence of bacterial infection Viral illness There is no antibiotic medication for viruses.? They must run their course.? Most average 5-7 days but 7-10 days is not uncommon and up to 14 days is still possible.? A cough is often the last symptom to resolve and this can last for weeks in some cases. Rest Hydrate well -? Drink plenty of fluids.? Especially water. Tylenol for muscle aches, headache, fever/discomfort Cannot rule out COVID-19/RSV/Flu infection Nasal swab acquired and will be sent to the lab Return for new or worsening symptoms Verbalized understanding and agreed with treatment plan. Orders: Orders Basic Metabolic Panel Today N28.9 - Disorder of kidney and ureter, unspecified Complete Blood Count Auto Diff Today B34.9 - Viral infection, unspecified, D64.9 - Anemia, unspecified SARS-CoV2/FLU/RSV Today B34.9 - Viral infection, unspecified Vitamin B12 and Folate Today D64.9 - Anemia, unspecified IRON PROFILE Today D64.9 - Anemia, unspecified Ferritin Today D64.9 - Anemia, unspecified Microalbumin, Random (w Creat) Today R80.9 - Proteinuria, unspecified Medications: New valsartan 160 mg PO DAILY 30 days 30 tabs 3RF
[2024-09-28 13:53] VITALS: BP 155/95; PULSE 88; RESP 16; TEMP 38.4; O2SAT 98; BMI 29.6
[2024-09-28 14:28] VITALS: BP 130/100
--- OUTSIDE RECORDS SUMMARY | 2024-09-28 15:30 | XMS_ITS | Clinical Summary ---
Demographics Address [address] [place] [address] [place] [address] Home Phone Mobile Phone Email Address Preferred Language en Marital Status Single Gnosticist Affiliation Unknown Race Unknown Ethnic Group Not or Lati no Author Organization 175 [facility] Address [address] [place] [address] Phone Care Team Providers Care Adult School Teacher Name Role Phone Neo Gutierrez MD Primary Care Provider [phone] Allergies Active Allergy Reactions Criticality Noted Date Comments Cefaclor 08/15/2010 Unknown, told in childhood Medications acetaminophen (TYLENOL) 500 mg tablet Take 1 tablet (500 mg total) by mouth every 6 (six) hours if needed. Active cloNIDine ([id number]-[id number]-5) 0.2 mg/[address] 1 patch on [...] kidney disease 06/03/2017 Hypertension, renal disease 07/09/2013 Immunizations Name Administration Dates Next Due DTP 02/08/1997, 3,03/28/1992,10/07 DTaP (Infanrix) 6wks to less than 7yo 08/13/1996 [id number] (Pentacel) 2mo to less than 5yo 12/27/1992,03/28/1992,02/09/1992,10/07 [...] History Date Comments Elevated blood pressure 01/07/2013 DX:[place] moriah blood pressure Family History Medical History [...] 2:00 PM EDT Office Visit Nephrology - [place] [address] [place] [address] Raymundo Smith MD 100 [facility] [address] [place] [address] Health Maintenance Due Date Last Done Comments [...] Most Recently Relevant to Health Maintenance Insurance [address] [place] [address] Care Teams Adult School Teacher Relationship Specialty Start Date End Date Neo Gutierrez MD 175 [facility] [address] [place], [place] [id number] PCP - General Internal Medicine 02/07/24
== END 2024-09-28 14:43 | disposition home or self-care (01) ==
LOC: HO.HMCFM 13:41
PROVIDERS: PCP Nurse Practitioner Family; Visit Provider Nurse Practitioner Family
DX: I10 Essential (primary) hypertension (principal); E55.9 Vitamin D deficiency, unspecified; D64.9 Anemia, unspecified; N28.9 Disorder of kidney and ureter, unspecified; R80.9 Proteinuria, unspecified; B34.9 Viral infection, unspecified

== ENCOUNTER 2024-09-28 14:59 | Outpatient (REF) | payer OTHER, SELFPAY | END 2024-09-28 15:00 | disposition home or self-care (01) | LOC: HO.WFDLDS 14:59 | PROVIDERS: Visit Provider Nurse Practitioner Family | DX: Z13.89 Encounter for screening for other disorder (principal) ==

== ENCOUNTER 2024-10-30 11:45 | Outpatient (AMB) | payer OTHER, SELFPAY ==
--- NOTE | 2024-10-30 11:58 | A.OFFPC_ITS ---
Vital Signs 10/30/24 12:04 10/30/24 12:09 Height 5 ft 9 in Weight 203 lb 4 oz BMI 30.0 BP 168/98 H 150/92 H Blood Pressure Location Lt brachial Lt brachial Position Sitting Sitting Respiration 16 Pulse 62 Pulse Source Pulse Oximeter Temp 97.6 F Temp Source Temporal Artery Scan Pulse Oximetry (%) 99 Oxygen Delivery Method Room Air Intake Visit Reasons: 1 mos HTN Intake Note: Vikram presents in the office today for a follow up to hypertension. Allergies cefaclor (From Ceclor) Allergy (Mild, Verified 10/30/24 12:01) hives Tobacco use date assessed: 10/30/24 Dental Screening Dental Screen Date: 10/30/24 Did you have a dental visit in the last 12 months?: No Did you have a dental problem in the last 6 months where you did not have access to dental care?: No Was dental information given to patient?: Yes HPI HPI Comments History of Present Illness Details 34-year-old male presents for hypertensi on follow-up. He admits to taking his medications as prescribed without adverse reactions. He notes that he has been eating healthy and exercising routinely. He states that his home blood pressure readings average 140-150/90. He offers no complaints and denies acute symptoms at this time. He did not get CBC and iron profile blood work as planned. He states that he has an appointment with [facility] in a month. [facility] Medical History (Updated 09/29/24 @ 07:06 by Baldomero Kaiser CNP) Anxiety Polycystic kidney disease History of gastroesophageal reflux (GERD) High blood pressure Family History Father Alcohol abuse Maternal Grandmother Diabetes Brother Asthma Social History (Updated 10/30/24 @ 12:02 by Carrie Lara MA) Housing: Apartment Alcohol intake: current Patient Tobacco Use Status: Never used Tobacco e-Cigarette/Vaping Use: Never Used Second Hand Smoke Exposure: No Substance Use Type: Marijuana service: No Current occupational status: employed Current occupation: [employer] Current occupational exposures/hazards: Yes Cognitive needs: No Hearing needs: No Vision needs: Yes Questionnaire PHQ-9 Over the last 2 weeks, how often have you been bothered by any of the following problems? 1. Little interest or pleasure in doing things: not at all 2. Feeling down, depressed, or hopeless: not at all 3. Trouble falling or staying asleep, or sleeping too much: several days 4. Feeling tired or having little energy: several days 5. Poor appetite or overeating: several days 6. Feeling bad about yourself - or that you are a failure or have let yourself or your family down: not at all 7. Trouble concentrating on things, such as reading the newspaper or watching television: not at all 8. Moving or speaking so slowly that other people could have noticed. Or the opposite - being so fidgety or restless that you have been moving around a lot more than usual: not at all 9. Thoughts that you would be better off or of hurting yourself in some way: not at all Total score: 3 Depression Screening Interpretation: Negative Depression Screening Done: Yes 22049 - PHQ-9 Billing: Yes Source: Developed by Drs. Favian Soler, Cristin Moran, Arnie Ortiz and colleagues, with an educational aleks from [employer]. Thrive Questionnaire Date Thrive assessed: 08/18/24 I am a: Patient What is your living situation today?: I have a steady place to live Within the past 12 months, did the food you bought not last and you didn't have the money to get more?: Never true Within the past 12 months, did you worry whether your food would run out before you got money to buy more?: Never true Do you have trouble paying for medicines?: Yes Do you have trouble getting transportation to medical appointments?: No Do you have trouble paying your heating and electricity bill?: No Do you have trouble taking care of your child, family member or friend?: No Do you have trouble with day-to-day activities such as bathing, preparing meals, shopping, managing finances, etc.?: No Are you currently unemployed and looking for a job?: No Are you interested in more education?: No Please select the resources that you would like help with: None Currently or been in a relationship where the following occur: No concerns reported THRIVE Score: 0 AUDIT C Alcohol Use Questionnaire (AUDIT-C) 1. How often do you have a drink containing alcohol?: 2-4 times a month 2. How many drinks containing alcohol do you have on a typical day when you are drinking?: 3 or 4 3. How often do you have six or more drinks on one occasion?: Never Total Score: 3 JOSE-7 AMB Questionnaire JOSE-7 Date JOSE - 7 assessed: 08/25/24 Source: Developed by Drs. Favian Soler, Cristin Moran, Arnie Ortiz and colleagues, with an educational aleks from [employer]. Review of Systems Const Details: Const Denies chills, Denies fatigue, Denies fever(s), Denies headache(s) and Denies weakness ENT Denies dizziness and Denies headache(s) Card Denies chest pain, Denies lightheadedness, Denies dyspnea and Denies other (Palpitations) Resp Denies cough, Denies dyspnea, Denies wheezing and Denies other ( shortness of breath) GI Denies abdominal pain, Denies melena, Denies hematochezia, Denies change in bowel habits, Denies dyspepsia and Denies nausea Denies hematuria and Denies dysuria Musc Denies abnormal gait, Denies myalgias, Denies arthralgias, Denies numbness and Denies tingling Skin/Breast Denies rash, Denies unusual bruising and Denies wounds Neuro Denies abnormal gait, Denies dizziness, Denies headache(s), Denies memory loss, Denies numbness, Denies Sensory deficit (Neuro), Denies tingling and Denies weakness Psych Denies anxiety, Denies depression, Denies memory loss Endo Denies cold intolerance, Denies fatigue, Denies heat intolerance, Denies polydipsia and Denies polyuria Aller/Immun Denies wheezing Physical exam (Primary Care) Vital Signs: Last Vital Signs Temp 97.6 F 10/30/24 12:04 Pulse 62 10/30/24 12:04 Resp 16 10/30/24 12:04 BP 150/92 H 10/30/24 12:09 Pulse Ox 99 10/30/24 12:04 Oxygen Delivery Method Room Air 10/30/24 12:04 BMI result Body Mass Index 30.0 Tobacco/Smoking Status: Tobacco use Status Tobacco use date assessed 10/30/24 10/30/24 12:10 Patient Tobacco Use Status Never used Tobacco 10/30/24 12:02 e-Cigarette/Vaping Use Never Used 10/30/24 12:02 PHQ-9: PHQ-9 Score PHQ-9: Total score 3 10/30/24 12:10 Depression Screening Interpretation: Negative Thrive Assessment: Date of Thrive Assessment Date Thrive assessed 08/18/24 10/30/24 11:59 Currently or been in a relationship where the following occur: No concerns reported Const Other: General: no acute distress and well developed Nutritional Appearance: well nourished Orientation/consciousness: patient oriented x3 [facility] Head: Yes normocephalic and Yes atraumatic Eyes General: appearance normal, both eyes and all related structures Pupils: Equal, round and reactive pupils present EOM: EOMs intact bilaterally Resp Effort & Inspection: normal respiratory effort Auscultation: clear to auscultation bilaterally Cardio Rate: regular rate Rhythm: regular rhythm Heart sounds: S1 normal heart sound present, S2 normal heart sound present, no gallops, no murmurs and no rubs GI Palpation (GI): No Abdominal aortic bruit present, Soft to palpation, nontender, No hepatosplenomegaly present and No Rebound tenderness present Auscultation: normal bowel sounds General: Yes no CVA tenderness Back/Spine/Pelvis Back: no CVA tenderness Cervical Spine: cervical ROM normal and No Cervical spine tenderness Thoracic/Lumbar Spine: thoraco-lumbar ROM normal, No pain with thoraco-lumbar ROM, No thoracic spinal tenderness and No lumbar spinal tenderness Extrem General: Yes normal to inspection, No edema and No calf tenderness Skin General: warm and dry. Normal skin color. Normal skin turgorl Neuro General: patient oriented x3, gait normal and no focal neuro deficit Cranial nerves: Yes Equal, round and reactive pupils present Cognition (Neuro): normal cognition Gait exam (Neuro): Normal gait present Sensory Exam: No Sensory deficit (Neuro) Psych Appearance: grossly normal Affect: normal affect Attitude: cooperative Thought process: Normal thought process present Coding Level of Care Code Est Pt Level 4 (61729) Diagnoses High blood pressure I10 Iron deficiency anemia D50.9 Kidney disease N28.9 Additional Codes PHQ-9 - 83234 - PHQ-9 Billing: Yes ([id number]) Assessment & Plan Assessment & Plan (1) High blood pressure: Code(s): I10 - Essential (primary) hypertension Category: Medical Plan: Resting blood pressure is 150/92, above goal of less than 140/80. His home blood pressure average 140-150/90. Will increase valsartan to 320 mg daily; advised to take as prescribed. Low-sodium diet encouraged. Continue to monitor blood pressure and reports readings consistently above 140/90 with or without symptoms such as headaches and visual disturbances. Follow-up in 1 month or sooner with symptoms or concerns. Verbalized understanding and agreed with the plan. (2) Iron deficiency anemia: Code(s): D50.9 - Iron deficiency anemia, unspecified Category: Medical Plan: Continue current treatment regimen. Encouraged to perform CBC and iron profile blood work today. Will review results and make changes as needed. Verbalized understanding and agreed with the plan. (3) Kidney disease: Code(s): N28.9 - Disorder of kidney and ureter, unspecified Category: Medical Plan: He has an appointment with [facility] Ne[facility]rology next month. Will recheck creatinine level today. Encouraged to follow-up with Nephrology as planned. Verbalized understanding and agreed with the plan. Orders: Orders Creatinine Today N28.9 - Disorder of kidney and ureter, unspecified Medications: New valsartan 320 mg PO DAILY 30 tabs 3RF 30 days Discontinued valsartan Discontinued Reason: Doctor's Order 160 mg PO DAILY 30 days 30 tabs 3RF
[2024-10-30 12:04] VITALS: BP 168/98; PULSE 62; RESP 16; TEMP 36.4; O2SAT 99
[2024-10-30 12:09] VITALS: BP 150/92
--- OUTSIDE RECORDS SUMMARY | 2024-10-30 12:14 | XMS_ITS | Clinical Summary ---
Demographics Address [address] [address] [place] [address] Home Phone Mobile Phone Email Address Preferred Language en Marital Status Single Zoroastrian Affiliation Unknown Race Unknown Ethnic Group Not or Lati no Author Organization [facility] Address [address] [place] [address] Phone Care Team Providers Care Services Mgr Name Role Phone Neo Gutierrez MD Primary Care Provider [phone] Allergies Active Allergy Reactions Criticality Noted Date Comments Cefaclor 08/15/2010 Unknown, told in childhood Medications acetaminophen (TYLENOL) 500 mg tablet Take 1 tablet (500 mg total) by mouth every 6 (six) hours if needed. Active esomeprazole magnesium (NEXIUM ORAL) Take by mouth 1 (one) time each day. Active amLODIPine (NORVASC) 10 mg tablet TAKE 1 TABLET BY MOUTH EVERY DAY 90 tablet 1 4 Active valsartan (DIOVAN) 80 mg tablet Take 1 tablet (80 mg total) by mouth 1 (one) time each day. 90 each 3 5 06/17/19 26 Active cloNIDine (ITBVGUHV-SGZ-5 ) 0.2 mg/[address] 1 PATCH ONTO THE SKIN EVERY 7 DAYS. 12 patch 3 5 Active cloNIDine (RPWIWARP-PPS-8 ) 0.2 mg/[address] 1 patch on the skin 1 (one) time per week. 4 10/28/19 25 Discontinued Active Problems Problem Noted Date Diagnosed Date [...] (Infanrix) 6wks to less than 7yo 08/13/1996 [id number]-[id number] (Pentacel) 2mo to less than 5yo 12/27/1992,03/28/1992,02/09/1992,10/07 [...] History Date Comments Elevated blood pressure 01/07/2013 DX:Zehra major blood pressure Family History Medical History Relation [...] 2:00 PM EDT Office Visit Nephrology - [place] [address] [place] [address] Raymundo Smith MD [facility] [address] [place] [address] Health Maintenance Due Date Last Done Comments DTaP,Tdap,and Td Vaccines (8 - Td or Tdap) 01/05/2019 01/05/2009, 08/11/2001, 02/08/1997, Additional history exists Depression Screening 05/26/2023 HIV Screening 05/26/2023 Hepatitis C Screening 05/26/2023 Social Influencers of Health Screening 05/26/2023 COVID-19 Vaccine ( season) 2023 Influenza Vaccine (#1) 2024 4, 01/10/2010, 01/05/2009 Cholesterol Screening (Lipid Panel) 07/25/2028 [...] 5 Years) and At-Risk Patients (6 to 49 Years) Aged Out No longer eligible based [...] mg/dL Blood Venous blood specimen / Unknown [facility] Provider LAB BLOOD ORDERABLES Lilliana l Result from Last 3 Months or Most Recently Relevant to Health Maintenance Insurance 11 [address] Care Teams Services Mgr Relationship Specialty Start Date End Date Neo Gutierrez MD [address] [place] [id number] PCP - General Internal Medicine 02/07/24
--- OUTSIDE RECORDS SUMMARY | 2024-10-30 12:15 | XMS_ITS | Encounter Summary ---
Author Organization [facility] Address [address] [place] [id number] Phone Care Team Providers Care Solar Installation Crew Supervisor Name Role Phone Unavailable Primary Care Provider Unavailabl e Encounter Details Date Type Department Care Team (Late st Contact Info) Description 09/08/2017 [facility]counter [facility] [address] [address] Social History Tobacco Use Types Packs/Day Years [...]
== END 2024-10-30 12:49 | disposition home or self-care (01) ==
LOC: HO.HMCFM 11:46
PROVIDERS: PCP Nurse Practitioner Family; Visit Provider Nurse Practitioner Family
DX: I10 Essential (primary) hypertension (principal); D50.9 Iron deficiency anemia, unspecified; N28.9 Disorder of kidney and ureter, unspecified

== ENCOUNTER → 2024-10-30 11:45 | Outpatient (BNVA) | payer OTHER, SELFPAY | PROVIDERS: PCP Nurse Practitioner Family; Visit Provider Nurse Practitioner Family | DX: I10 Essential (primary) hypertension (principal); D50.9 Iron deficiency anemia, unspecified; N28.9 Disorder of kidney and ureter, unspecified; Z79.899 Other long term (current) drug therapy; Z13.31 Encounter for screening for depression | CPT/HCPCS: 96127 ==

== ENCOUNTER 2024-10-30 12:59 | Outpatient (REF) | payer OTHER, SELFPAY ==
[2024-10-30 14:51] LABS: MANUAL DIFF FLAG NO
[2024-10-30 14:55] LABS: Hematocrit 38.6 % (42.0-52.0); Hemoglobin 12.3 g/dl (14.0-18.0); Imm Gran Abs Auto 0.01 X10*3/uL (0.00-0.03); Imm Gran Pct Auto 0.2 % (0.0-0.4); Lymphocytes Absolute Auto 1.2 X10*3/uL (1.2-4.9); Mean Corpuscular HGB Conc 31.9 g/dl (31.0-36.0); Mean Corpuscular Hemoglobin 25.9 pg (27.0-33.0); Mean Corpuscular Volume 81.3 fL (80.0-98.0); NRBC Abs Auto 0.000 X10*3/uL (0.0-0.012); NRBC Pct Auto 0.0 /100WBC (0.0-0.2); Platelet Count 222 X10*3/uL (160-400); Red Blood Count 4.75 X10*6/uL (4.60-5.80); White Blood Count 5.0 X10*3/uL (4.8-10.8)
[2024-10-30 16:48] LABS: Estimated Glomerular Filt Rate 42; Iron 79 mcg/dL (45-160); Percent Iron Saturation 31 % (15-50); Total Iron Binding Capacity 253 mcg/dL (228-428); Unsaturated Iron Binding 174 ug/dL
== END 2024-10-30 13:00 | disposition home or self-care (01) ==
LOC: HO.WFDLDS 12:59
PROVIDERS: Visit Provider Nurse Practitioner Family
DX: Z00.00 Encounter for general adult medical examination without abnormal findings (principal); D50.9 Iron deficiency anemia, unspecified; B34.9 Viral infection, unspecified; N28.9 Disorder of kidney and ureter, unspecified
CPT/HCPCS: 36415; 82565; 83540; 85025

== ENCOUNTER 2024-11-30 10:20 | Outpatient (AMB) | payer OTHER, SELFPAY ==
[2024-11-30 10:24] VITALS: BP 122/96; PULSE 62; O2SAT 100; BMI 29.7
--- NOTE | 2024-11-30 10:24 | HO.NEPHOV ---
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 The patient reports a history of hypertension since his early 20s, which has been difficult to manage despite various medications. He is currently on valsartan 320 mg, which was recently increased, but his blood pressure remains elevated at home, typically around 140/94 mmHg. The patient has a history of polycystic kidney disease, diagnosed approximately six to seven years ago following an ultrasound that revealed cysts in the kidneys. There is no known family history of polycystic kidney disease, and previous specialists have expressed confusion regarding the etiology. The patient denies any urinary symptoms such as hematuria, dysuria, or changes in urinary frequency, and reports no history of urinary tract infections. He does not smoke and drinks alcohol occasionally. The patient works at a [employer] and has one older brother and one older sister, both reportedly healthy. [facility] Medical History (Updated 09/29/24 @ 07:06 by Baldomero Kaiser CNP) Anxiety Polycystic kidney disease History of gastroesophageal reflux (GERD) High blood pressure Family History Father Alcohol abuse Maternal Grandmother Diabetes Brother Asthma Social History Housing: Apartment Alcohol intake: current Patient Tobacco Use Status: Never used Tobacco e-Cigarette/Vaping Use: Never Used Second Hand Smoke Exposure: No Substance Use Type: Marijuana service: No Current occupational status: employed Current occupation: [employer] Current occupational exposures/hazards: Yes Cognitive needs: No Hearing needs: No Vision needs: Yes Review of Systems Const Denies anorexia, Denies fever(s) and Denies weakness Eyes Denies blurry vision Card Denies no additional complaints and Denies dyspnea Resp Reports no additional complaints, Reports cough and Denies dyspnea GI Denies melena and Denies diarrhea Denies hematuria Musc Denies tingling Skin/Breast Denies rash Neuro Denies focal weakness, Denies tingling, Denies tremor(s) and Denies weakness Physical Exam Vital Signs: Last Vital Signs Pulse 62 11/30/24 10:24 BP 122/96 H 11/30/24 10:24 Pulse Ox 100 11/30/24 10:24 BMI result Body Mass Index 29.7 Const General: comfortable Nutritional Appearance: well nourished Orientation/consciousness: patient oriented x3 HEENT Head: No normal to inspection Mouth: moist mucous membranes Neck Neck: Yes supple and Yes no JVD Resp Auscultation: clear to auscultation bilaterally and no rales Cardio Jugular venous distension: no JVD Palpation: no palpable S3 and no palpable S4 Heart sounds: no rubs GI Palpation (GI): Soft to palpation and nontender Percussion: No Fluid wave present General: Yes no CVA tenderness Back/Spine/Pelvis Back: no CVA tenderness Skin General skin exam: no rashes or lesions noted Neuro General: patient oriented x3 Extrem General: Yes no pedal edema and No clubbing Results Reviewed Nephrology Results: Hgb, (14.0-18.0) 12.3 g/dl L 10/30/24 WBC, (4.8-10.8) 5.0 X10*3/uL 10/30/24 Plt Count, (160-400) 222 X10*3/uL 10/30/24 Sodium, (135-145) 139 mmol/L 09/28/24 Potassium, (3.3-5.1) 4.5 mmol/L 09/28/24 Chloride, (96-108) 104 mmol/L 09/28/24 Carbon Dioxide, (22-29) 27 mmol/L 09/28/24 BUN, (9-16) 29 mg/dL H 09/28/24 Creatinine, (0.5-1.4) 1.87 mg/dL H 10/30/24 Calcium, (8.4-10.2) 9.2 mg/dL Δ 09/28/24 Urine Protein, (Neg-Trace) Trace mg/dL 09/28/24 Urine Creatinine 90.22 mg/dL 09/28/24 Assessment & Plan Assessment & Plan (1) Polycystic kidney disease: Code(s): Q61.3 - Polycystic kidney, unspecified Category: Medical Plan History of polycystic kidney disease and difficult control hypertension. Just in the stage III CKD. Recent EGFR is 42 mL/minute with a creatinine of 1.85. Goal is to slow the progression of renal disease. First step is to optimize blood pressure and maintain blood pressure less than 130/80. Continue to avoid nephrotoxic agents including NSAIDs. Increase p.o. fluid intake. We will consider adding tolvaptan once the baseline workup is completed. Plan Add amlodipine 5 mg daily. Stay on low-sodium diet. Obtain 24 hour urine collection. Return to clinic after baseline workup is completed. Orders: Orders Creatinine, 24 Hr Group Today Q61.3 - Polycystic kidney, unspecified Basic Metabolic Panel Today Q61.3 - Polycystic kidney, unspecified Medications: New amlodipine 5 mg PO DAILY 30 tabs 0RF Patient Instructions: - Continue taking valsartan 320 mg daily. - Start taking amlodipine 5 mg daily. - Complete the 24-hour urine collection as instructed. - Schedule and complete an ultrasound of the kidneys. - Follow up in a few weeks to review test results and adjust treatment if necessary. Coding Level of Care Code New Pt Level 4 (55961) Diagnoses Polycystic kidney disease Q61.3
--- OUTSIDE RECORDS SUMMARY | 2024-11-30 10:57 | XMS_ITS | Clinical Summary ---
Demographics Address [address] [place] [address] Home Phone Mobile Phone Email Address Preferred Language en Marital Status Single Zoroastrianism Affiliation Unknown Race Unknown Ethnic Group Not or Lati no Author Organization [facility] Address [address] [place] [address] Phone Care Team Providers Care Stone Belt Sander Name Role Phone Neo Gutierrez MD Primary Care Provider [phone] Allergies Active Allergy Reactions Criticality Noted Date [...] each day. 90 each 3 06/17/2024 Active cloNIDine ([id number]-1) 0.2 mg/[address] 1 PATCH ONTO THE SKIN EVERY 7 DAYS. 12 patch 3 10/27/2024 Active Active Problems Problem Noted Date Diagnosed [...] (Infanrix) 6wks to less than 7yo 08/13/1996 [id number] (Pentacel) 2mo to less than 5yo 12/27/1992,03/28/1992,02/09/1992,10/07 [...] History Date Comments Elevated blood pressure 01/07/2013 DX:[place] blood pressure Family History Medical History [...] 2:00 PM EDT Office Visit Nephrology - [place] [address] [place] [address] Raymundo Smith MD 100 [facility] [place] [address] [place] [address] Health Maintenance Due Date Last Done Comments DTaP,Tdap,and Td Vaccines (8 - Td or Tdap) 01/05/2019 01/05/2009, 08/11/2001, 02/08/1997, Additional history exists HIV Screening 05/26/2023 Hepatitis C Screening 05/26/2023 Social Influencers of Health Screening 05/26/2023 COVID-19 Vaccine ( season) 2023 Depression Screening 04/22/2024 Influenza Vaccine (#1) 2024 4, 01/10/2010, 01/05/2009 [...] Relevant to Health Maintenance Insurance [address] [place] [address] Care Teams Stone Belt Sander Relationship Specialty Start Date End Date Neo Gutierrez MD [address] [facility] [address] [place], [place] [phone] PCP - General Internal Medicine 02/07/24
--- OUTSIDE RECORDS SUMMARY | 2024-11-30 10:57 | XMS_ITS | Encounter Summary ---
Author Organization [facility] Address [address] [place] [phone] Phone Care Team Providers Care Alarm Signaler Name Role Phone Unavailable Primary Care Provider Unavailabl e Encounter Details Date Type Department Care Team (Late st Contact Info) Description 09/08/2017 Conversion [facility]counter [facility] [address] [address] Social History Tobacco Use Types Packs/Day Years [...]
== END 2024-11-30 10:42 | disposition home or self-care (01) ==
LOC: HO.HKA 10:21
PROVIDERS: PCP Nurse Practitioner Family; Referring Provider Nurse Practitioner Family; Visit Provider Internal Medicine Hypertension Specialist
DX: Q61.3 Polycystic kidney, unspecified (principal)
CPT/HCPCS: 99204

== ENCOUNTER 2024-12-07 10:58 | Outpatient (AMB) | payer OTHER, SELFPAY ==
--- NOTE | 2024-12-07 11:04 | A.OFFPC_ITS ---
Vital Signs 12/07/24 11:09 12/07/24 11:22 Height 5 ft 9 in Weight 203 lb 2 oz BMI 30.0 BP 138/98 H 130/90 H Blood Pressure Location Rt brachial Rt brachial Position Sitting Respiration 16 Pulse 60 Pulse Source Pulse Oximeter Temp 98.3 F Temp Source Oral Pulse Oximetry (%) 99 Oxygen Delivery Method Room Air Intake Visit Reasons: 1 mos HTN Intake Note: patient here for 1month follow up for HTN Ethylbenzene Cracking Supervisor Required: No Allergies cefaclor (From [facility]) Allergy (Mild, Verified 12/07/24 11:18) hives Medication List - Last Reconciled 12/07/24 by Baldomero Kaiser CNP amlodipine 5 mg PO DAILY ascorbic acid (vitamin C) 100 mg PO DAILY 30 days cholecalciferol (vitamin D3) 1,250 mcg PO QWEEK valsartan 320 mg PO DAILY 30 days Tobacco use date assessed: 12/07/24 Dental Screening Dental Screen Date: 12/07/24 Did you have a dental visit in the last 12 months?: Yes Did you have a dental problem in the last 6 months where you did not have access to dental care?: No Was dental information given to patient?: Patient has dentist HPI HPI Comments History of Present Illness Details 34-year-old male presents for hypertensi on follow-up. He admits to taking his medications as prescribed without adverse reactions. He notes that he has been eating healthy and exercising routinely. He states that his home blood pressure readings average 140-145/90-101. He offers no complaints and denies acute symptoms at this time. He [place] [facility] [place] was recently prescribed amlodipine 5 mg daily. He notes I started taking amlodipine about a week ago. He has a follow-up appointment with Nephrology early next month. BP goal is less than 130/80 per Nephrology. 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 Current occupational exposures/hazards: Yes Cognitive needs: No Hearing needs: No Vision needs: Yes Questionnaire Thrive Questionnaire Date Thrive assessed: 08/18/24 I am a: Patient What is your living situation today?: I have a steady place to live Within the past 12 months, did the food you bought not last and you didn't have the money to get more?: Never true Within the past 12 months, did you worry whether your food would run out before you got money to buy more?: Never true Do you have trouble paying for medicines?: Yes Do you have trouble getting transportation to medical appointments?: No Do you have trouble paying your heating and electricity bill?: No Do you have trouble taking care of your child, family member or friend?: No Do you have trouble with day-to-day activities such as bathing, preparing meals, shopping, managing finances, etc.?: No Are you currently unemployed and looking for a job?: No Are you interested in more education?: No Please select the resources that you would like help with: None Currently or been in a relationship where the following occur: No concerns reported THRIVE Score: 0 JOSE-7 AMB Questionnaire JOSE-7 Date JOSE - 7 assessed: 08/25/24 Source: Developed by Drs. Favian Soler, Cristin Moran, Arnie Ortiz and colleagues, with an educational aleks from [employer]. Review of Systems Const Details: Const Denies chills, Denies fatigue, Denies fever(s), Denies headache(s) and Denies weakness ENT Denies dizziness and Denies headache(s) Card Denies chest pain, Denies lightheadedness, Denies dyspnea and Denies other (Palpitations) Resp Denies cough, Denies dyspnea, Denies wheezing and Denies other ( shortness of breath) GI Denies abdominal pain, Denies melena, Denies hematochezia, Denies change in bowel habits, Denies dyspepsia and Denies nausea Denies hematuria and Denies dysuria Musc Denies abnormal gait, Denies myalgias, Denies arthralgias, Denies numbness and Denies tingling Skin/Breast Denies rash, Denies unusual bruising and Denies wounds Neuro Denies abnormal gait, Denies dizziness, Denies headache(s), Denies memory loss, Denies numbness, Denies Sensory deficit (Neuro), Denies tingling and Denies weakness Psych Denies anxiety, Denies depression, Denies memory loss Endo Denies cold intolerance, Denies fatigue, Denies heat intolerance, Denies polydipsia and Denies polyuria Aller/Immun Denies wheezing Physical exam (Primary Care) Vital Signs: Last Vital Signs Temp 98.3 F 12/07/24 11:09 Pulse 60 12/07/24 11:09 Resp 16 12/07/24 11:09 BP 138/98 H 12/07/24 11:09 Pulse Ox 99 12/07/24 11:09 Oxygen Delivery Method Room Air 12/07/24 11:09 BMI result Body Mass Index 30.0 Tobacco/Smoking Status: Tobacco use Status Tobacco use date assessed 12/07/24 12/07/24 11:12 Patient Tobacco Use Status Never used Tobacco 12/07/24 11:05 e-Cigarette/Vaping Use Never Used 12/07/24 11:05 Thrive Assessment: Date of Thrive Assessment Date Thrive assessed 08/18/24 12/07/24 11:05 Currently or been in a relationship where the following occur: No concerns reported Const Other: General: no acute distress and well developed Nutritional Appearance: well nourished Orientation/consciousness: patient oriented x3 HENMT Head: Yes normocephalic and Yes atraumatic Eyes General: appearance normal, both eyes and all related structures Pupils: Equal, round and reactive pupils present EOM: EOMs intact bilaterally Resp Effort & Inspection: normal respiratory effort Auscultation: clear to auscultation bilaterally Cardio Rate: regular rate Rhythm: regular rhythm Heart sounds: S1 normal heart sound present, S2 normal heart sound present, no gallops, no murmurs and no rubs GI Palpation (GI): No Abdominal aortic bruit present, Soft to palpation, nontender, No hepatosplenomegaly present and No Rebound tenderness present Auscultation: normal bowel sounds General: Yes no CVA tenderness Back/Spine/Pelvis Back: no CVA tenderness Cervical Spine: cervical ROM normal and No Cervical spine tenderness Thoracic/Lumbar Spine: thoraco-lumbar ROM normal, No pain with thoraco-lumbar ROM, No thoracic spinal tenderness and No lumbar spinal tenderness Extrem General: Yes normal to inspection, No edema and No calf tenderness Skin General: warm and dry. Normal skin color. Normal skin turgor Neuro General: patient oriented x3, gait normal and no focal neuro deficit Cranial nerves: Yes Equal, round and reactive pupils present Cognition (Neuro): normal cognition Gait exam (Neuro): Normal gait present Sensory Exam: No Sensory deficit (Neuro) Psych Appearance: grossly normal Affect: normal affect Attitude: cooperative Thought process: Normal thought process present Coding Level of Care Code Est Pt Level 4 (04239) Diagnoses High blood pressure I10 Vitamin D deficiency E55.9 Assessment & Plan Assessment & Plan (1) High blood pressure: Code(s): I10 - Essential (primary) hypertension Category: Medical Plan: Resting blood pressure is 130/90, above goal of less than 130/80. Amlodipine increased to 10 mg daily; advised to take as prescribed. Instructed on the risks, benefits, and potential adverse reactions of the medication. Continue to take valsartan as prescribed. Low-sodium diet encouraged. Continue to monitor BP a few times weekly. Follow-up with Nephrology as planned. Return in 1 month or sooner with symptoms or concerns. Verbalized understanding and agreed with plan. (2) Vitamin D deficiency: Code(s): E55.9 - Vitamin D deficiency, unspecified Category: Medical Plan: Recent vitamin-D level is significantly low. Encouraged to perform vitamin-D blood work. Will review results and make changes as needed. Leg understanding and agreed with the plan. Orders: Orders Vitamin D 25-OH Total Today E55.9 - Vitamin D deficiency, unspecified Medications: New amlodipine 10 mg PO DAILY 30 tabs 0RF 30 days Discontinued amlodipine Discontinued Reason: Doctor's Order 5 mg PO DAILY 30 tabs 0RF
[2024-12-07 11:09] VITALS: BP 138/98; PULSE 60; RESP 16; TEMP 36.8; O2SAT 99
[2024-12-07 11:22] VITALS: BP 130/90
--- OUTSIDE RECORDS SUMMARY | 2024-12-07 12:11 | XMS_ITS | Encounter Summary ---
Author Organization [facility] Address [address] [place] [address] Phone Care Team Providers Care Client Specialist Name Role Phone Unavailable Primary Care Provider Unavailabl e Encounter Details Date Type Department Care Team (Late st Contact Info) Description 09/08/2017 [facility]counter [facility] [address] [address] Social History Tobacco Use Types Packs/Day Years [...]
--- OUTSIDE RECORDS SUMMARY | 2024-12-07 12:11 | XMS_ITS | Clinical Summary ---
Demographics Address [address] [place] [address] Home Phone Mobile Phone Email Address Preferred Language en Marital Status Single Pentecostalism Affiliation Unknown Race Unknown Ethnic Group Not or Lati no Author Organization [address] [facility] Address [address] [place] [address] Phone Care Team Providers Care Insulation Board Coater Operator Name Role Phone Neo Gutierrez MD Primary Care Provider [phone] Allergies Active Allergy Reactions Criticality Noted Date [...] day. 90 each 3 06/17/2024 Active cloNIDine ([id number]-4) 0.2 mg/[address] 1 PATCH ONTO [...] (Infanrix) 6wks to less than 7yo 08/13/1996 LAiR-XAI-NOU (Pentacel) 2mo to less than 5yo 12/27/1992,03/28/1992,02/09/1992,10/07 [...] History Date Comments Elevated blood pressure 01/07/2013 DX:[place] moriah blood pressure Family History Medical History [...] 2:00 PM EDT Office Visit Nephrology - [place] [address] [place] [address] Raymundo Smith MD [address] [facility] [place] [address] [place] [address] Health Maintenance Due Date Last Done Comments [...] Relevant to Health Maintenance Insurance 11 1/[address] [place] [address] Care Teams Insulation Board Coater Operator Relationship Specialty Start Date End Date Neo Gutierrez MD 175 [facility] [address] [place], [place] [id number] PCP - General Internal Medicine 02/07/24
== END 2024-12-07 11:26 | disposition home or self-care (01) ==
LOC: HO.HMCFM 10:59
PROVIDERS: PCP Nurse Practitioner Family; Visit Provider Nurse Practitioner Family
DX: I10 Essential (primary) hypertension (principal); E55.9 Vitamin D deficiency, unspecified

== ENCOUNTER 2024-12-22 09:37 | Outpatient (REF) | payer OTHER, SELFPAY ==
--- OUTSIDE RECORDS SUMMARY | 2024-12-22 10:42 | XMS_ITS | Clinical Summary ---
Demographics Address [address] [place] [address] Home Phone Mobile Phone Email Address Preferred Language en Marital Status Single Shinto Affiliation Unknown Race Unknown Ethnic Group Not or Lati no Author Organization [facility] Address [address] [place] [address] Phone Care Team Providers Care Bin Operator Name Role Phone Neo Gutierrez MD Primary Care Provider [phone] Allergies Active Allergy Reactions Criticality Noted Date [...] day. 90 each 3 06/17/2024 Active cloNIDine (NYZPVTWA-[id number]-9) 0.2 mg/[address] 1 PATCH ONTO [...] (Infanrix) 6wks to less than 7yo 08/13/1996 COmP-DBN-YHF (Pentacel) 2mo to less than 5yo 12/27/1992,03/28/1992,02/09/1992,10/07 [...] History Date Comments Elevated blood pressure 01/07/2013 DX:[place] moriah blood pressure Family History Medical History [...] 2:00 PM EDT Office Visit Nephrology - [place] [address] [place] [address] Raymundo Smith MD 100 [facility] [address] [place] [address] Health Maintenance Due Date Last Done Comments DTaP,Tdap,and Td Vaccines (8 - Td or Tdap) 01/05/2019 01/05/2009, 08/11/2001, 02/08/1997, Additional history exists HIV Screening 05/26/2023 Hepatitis C Screening 05/26/2023 Social Influencers of Health Screening 05/26/2023 Depression Screening 04/22/2024 COVID-19 Vaccine ( season) 2024 Influenza Vaccine (#1) 2024 4, 01/10/2010, 01/05/2009 [...] Recently Relevant to Health Maintenance Insurance [address] [place] [address] Care Teams Bin Operator Relationship Specialty Start Date End Date Neo Gutierrez MD 175 [facility] [address] [place] [address] PCP - General Internal Medicine 02/07/24
--- OUTSIDE RECORDS SUMMARY | 2024-12-22 10:42 | XMS_ITS | Clinical Summary ---
Author Organization [facility] Address [address] [place] [address] Phone Care Team Providers Care Sheet Metal Installer Name Role Phone Unavailable Primary Care Provider [...] 2 - 2-dose childhood series) 09/10/1996 08/20/1992 HPV Vaccines (1 - 3-dose SCDM series) 08/06/2018 DTaP,Tdap,and Td Vaccines (7 - Td or Tdap) 01/05/2019 01/05/2009, 08/11/2001, 08/13/1996, Additional history exists Influenza Vaccines (#1) 2024 01/10/2010, 01/05 COVID-19 Vaccine ( season) 2024 HIB Vaccines Completed 12/27/1992, 0 10/1991, 02/09/1992, Additional history exists Hepatitis B Vaccines Completed 1994, 1991, 1991 IPV Vaccines Completed 08/13/1996, 2 , 02/09/1992, Additional history exists MMR Vaccines Completed [...]
--- OUTSIDE RECORDS SUMMARY | 2024-12-22 10:42 | XMS_ITS | Encounter Summary ---
Author Organization [facility] Address [address] [place] [address] Phone Care Team Providers Care Soot Blower Name Role Phone Unavailable Primary Care Provider Unavailabl e Encounter Details Date Type Department Care Team (Late st Contact Info) Description 09/08/2017 Conversion [facility]counter [facility] [address] [address] Social History Tobacco Use Types Packs/Day Years [...]
[2024-12-22 11:53] LABS: Creatinine, mg/dL 97.03
[2024-12-22 13:53] LABS: Total Volume 24 Hour Urine 1425 mL
== END 2024-12-22 09:38 | disposition home or self-care (01) ==
LOC: HO.10HDLNP 09:37
PROVIDERS: Visit Provider Internal Medicine Hypertension Specialist
DX: Q61.3 Polycystic kidney, unspecified (principal)
CPT/HCPCS: 82570

== ENCOUNTER 2024-12-24 11:19 | Outpatient (REF) | payer OTHER, SELFPAY ==
--- OUTSIDE RECORDS SUMMARY | 2024-12-24 13:00 | XMS_ITS | Clinical Summary ---
Demographics Address [address] [place] [address] Home Phone Mobile Phone Email Address Preferred Language en Marital Status Single Sabianist Affiliation Unknown Race Unknown Ethnic Group Not or Lati no Author Organization 175 [facility] Address [address] [place] [address] Phone Care Team Providers Care As400 Consultant Name Role Phone Neo Gutierrez MD Primary Care Provider [phone] Allergies Active Allergy Reactions Criticality Noted Date [...] day. 90 each 3 06/17/2024 Active cloNIDine ([id number]-MTM-9) 0.2 mg/[address] 1 PATCH ONTO [...] (Infanrix) 6wks to less than 7yo 08/13/1996 USvD-FHE-QAN (Pentacel) 2mo to less than 5yo 12/27/1992,03/28/1992,02/09/1992,10/07 [...] History Date Comments Elevated blood pressure 01/07/2013 DX:[place] moriah blood pressure Family History Medical History [...] 2:00 PM EDT Office Visit Nephrology - [place] [address] [place] [address] Raymundo Smith MD 100 [facility] [address] [place] [address] Health Maintenance Due Date Last Done Comments [...] Relevant to Health Maintenance Insurance [address] [place] [address] Care Teams As400 Consultant Relationship Specialty Start Date End Date Neo Gutierrez MD 175 [facility] [address] [place] [address] PCP - General Internal Medicine 02/07/24
--- OUTSIDE RECORDS SUMMARY | 2024-12-24 13:00 | XMS_ITS | Encounter Summary ---
Author Organization [facility] Address [address] [place] [address] Phone Care Team Providers Care Street Light Repairer Name Role Phone Unavailable Primary Care Provider Unavailabl e Encounter Details Date Type Department Care Team (Late st Contact Info) Description 09/08/2017 Conversion Encounter [facility] [address] [address] Social History Tobacco Use Types Packs/Day Years [...]
--- OUTSIDE RECORDS SUMMARY | 2024-12-24 13:00 | XMS_ITS | Clinical Summary ---
Author Organization [facility] Address [address] [place] [address] Phone Care Team Providers Care Senior Mechanical Technician Name Role Phone Unavailable Primary Care Provider [...]
[2024-12-24 14:22] LABS: Anion Gap 13 (12-20); Blood Urea Nitrogen 31 mg/dL (9-16); Calcium 9.5 mg/dL (8.4-10.2); Carbon Dioxide 27 mmol/L (22-29); Chloride 107 mmol/L (96-108); Estimated Glomerular Filt Rate 36; Potassium 4.7 mmol/L (3.3-5.1); Sodium 142 mmol/L (135-145)
== END 2024-12-24 11:20 | disposition home or self-care (01) ==
LOC: HO.WFDLDS 11:19
PROVIDERS: Internal Medicine Hypertension Specialist; Visit Provider Nurse Practitioner Family
DX: Q61.3 Polycystic kidney, unspecified (principal); E55.9 Vitamin D deficiency, unspecified
CPT/HCPCS: 36415; 80048; 82306

== ENCOUNTER 2024-12-28 11:04 | Outpatient (AMB) | payer OTHER, SELFPAY ==
[2024-12-28 11:13] VITALS: BP 144/88; PULSE 81; O2SAT 97; BMI 30.3
--- NOTE | 2024-12-28 11:13 | HO.NEPHOV_ITS ---
Vital Signs 12/28/24 11:13 12/28/24 11:25 Height 5 ft 9 in Weight 205 lb BMI 30.3 BP 144/88 H 130/90 H Blood Pressure Location Lt brachial Lt brachial Position Sitting Sitting Pulse 81 Pulse Source Pulse Oximeter Pulse Oximetry (%) 97 Oxygen Delivery Method Room Air Intake Visit Reasons: 3-4wk f/u w/labs-Conf Hand Sign Writer Required: No Accompanied by: Self / Same As Patient Allergies cefaclor (From [facility]) Allergy (Mild, Verified 12/28/24 11:14) hives Medication List - Last Reconciled 12/28/24 by Leonel Mercado MD amlodipine 10 mg PO DAILY 30 days ascorbic acid (vitamin C) 100 mg PO DAILY 30 days cholecalciferol (vitamin D3) 1,250 mcg PO QWEEK ferrous sulfate 325 mg PO DAILY valsartan 320 mg PO DAILY 30 days HPI Comments Details: The patient is a 34-year-old male presenting with hypertension and PCKD with declining kidney function. The patient reports a history of hypertension since his early 20s, which has been difficult to manage despite various medications. He is currently on valsartan 320 mg, which was recently increased, but his blood pressure remains elevated at home, typically around 140/94 mmHg. The patient has a history of polycystic kidney disease, diagnosed approximately six to seven years ago following an ultrasound that revealed cysts in the kidneys. There is no known family history of polycystic kidney disease, and previous specialists have expressed confusion regarding the etiology. The patient denies any urinary symptoms such as hematuria, dysuria, or changes in urinary frequency, and reports no history of urinary tract infections. He does not smoke and drinks alcohol occasionally. The patient works at a [employer] and has one older brother and one older sister, both reportedly healthy. 12/28/24 The patient is a 34-year-old male presenting for follow-up of polycystic kidney disease and hypertension management. Polycystic kidney disease is stable with kidney function at 45%. Hypertension is managed with amlodipine and valsartan. Blood pressure improved from 140/88 mmHg to 130/90 mmHg. Initial dizziness with amlodipine resolved. Patient advised on salt intake and hydration. Medications: - Amlodipine 10 mg for hypertension - Valsartan 320 mg for hypertension Social History: - Monitoring dietary salt intake - Adequate hydration advised Diagnostic Results: - Kidney function: 45% as of recent evaluation [facility] Medical History (Updated 09/29/24 @ 07:06 by Baldomero Kaiser CNP) Anxiety Polycystic kidney disease History of gastroesophageal reflux (GERD) High blood pressure Family History Father Alcohol abuse Maternal Grandmother Diabetes Brother Asthma Social History Housing: Apartment Alcohol intake: current Patient Tobacco Use Status: Never used Tobacco e-Cigarette/Vaping Use: Never Used Second Hand Smoke Exposure: No Substance Use Type: Marijuana service: No Current occupational status: employed Current occupation: [employer] Current occupational exposures/hazards: Yes Cognitive needs: No Hearing needs: No Vision needs: Yes Physical Exam Vital Signs: Last Vital Signs Pulse 81 12/28/24 11:13 BP 144/88 H 12/28/24 11:13 Pulse Ox 97 12/28/24 11:13 Oxygen Delivery Method Room Air 12/28/24 11:13 BMI result Body Mass Index 30.3 Results Reviewed Nephrology Results: Hgb, (14.0-18.0) 12.3 g/dl L 10/30/24 WBC, (4.8-10.8) 5.0 X10*3/uL 10/30/24 Plt Count, (160-400) 222 X10*3/uL 10/30/24 Sodium, (135-145) 142 mmol/L 12/24/24 Potassium, (3.3-5.1) 4.7 mmol/L 12/24/24 Chloride, (96-108) 107 mmol/L 12/24/24 Carbon Dioxide, (22-29) 27 mmol/L 12/24/24 BUN, (9-16) 31 mg/dL H 12/24/24 Creatinine, (0.5-1.4) 2.11 mg/dL H 12/24/24 Calcium, (8.4-10.2) 9.5 mg/dL 12/24/24 Assessment & Plan Assessment & Plan (1) Polycystic kidney disease: Code(s): Q61.3 - Polycystic kidney, unspecified Category: Medical (2) High blood pressure: Code(s): I10 - Essential (primary) hypertension Category: Medical Plan History of polycystic kidney disease and difficult control hypertension. Just in the stage III CKD. Recent EGFR is 42 mL/minute with a creatinine of 1.85. Goal is to slow the progression of renal disease. First step is to optimize blood pressure and maintain blood pressure less than 130/80. Continue to avoid nephrotoxic agents including NSAIDs. Increase p.o. fluid intake. We will consider adding tolvaptan once the baseline workup is completed. Plan Keep amlodipine adn Valsartan mg daily. Mild bump in creatinine with Valsartan- acceptable Stay on low-sodium diet. urine collection - Cr CL of about 40-45 ml/mt Follow up USG ordered Orders: Orders US renal BI Today Q61.3 - Polycystic kidney, unspecified Comprehensive Met. Panel 3 Months I10 - Essential (primary) hypertension, Q61.3 - Polycystic kidney, unspecified Coding Level of Care Code Est Pt Level 4 (33672) Diagnoses Polycystic kidney disease Q61.3 High blood pressure I10
[2024-12-28 11:25] VITALS: BP 130/90
--- OUTSIDE RECORDS SUMMARY | 2024-12-28 13:33 | XMS_ITS | Encounter Summary ---
Author Organization [facility] Address [address] [place] [address] Phone Care Team Providers Care Dubbing Machine Operator Name Role Phone Unavailable Primary Care Provider Unavailabl e Encounter Details Date Type Department Care Team (Late st Contact Info) Description 09/08/2017 Conversion Encounter [facility] [address] [address] Social History Tobacco Use Types Packs/Day Years [...]
--- OUTSIDE RECORDS SUMMARY | 2024-12-28 13:33 | XMS_ITS | Clinical Summary ---
Author Organization [facility] Address [address] [place] [address] Phone Care Team Providers Care House Worker Name Role Phone Unavailable Primary Care [...]
--- OUTSIDE RECORDS SUMMARY | 2024-12-28 13:33 | XMS_ITS | Clinical Summary ---
Demographics Address [address] [place] [address] [place] [address] Home Phone Mobile Phone Email Address Preferred Language en Marital Status Single Sabianism Affiliation Unknown Race Unknown Ethnic Group Not or Lati no Author Organization 175 [facility] Address [address] [place] [address] Phone Care Team Providers Care Stemhole Borer Name Role Phone Neo Gutierrez MD Primary Care Provider [phone] Allergies Active Allergy Reactions Criticality Noted Date [...] day. 90 each 3 06/17/2024 Active cloNIDine (VRVGMZIP-MMN-1) 0.2 mg/[address] 1 PATCH ONTO [...] (Infanrix) 6wks to less than 7yo 08/13/1996 TBoV-HDF-WPU (Pentacel) 2mo to less than 5yo 12/27/1992,03/28/1992,02/09/1992,10/07 [...] History Date Comments Elevated blood pressure 01/07/2013 DX:[facility]iah blood pressure Family History Medical History [...] 2:00 PM EDT Office Visit Nephrology - [place] [address] [place] [address] Raymundo Smith MD 100 [facility] [address] [place] [address] Health Maintenance Due Date Last Done Comments [...] Relevant to Health Maintenance Insurance [address] [place] [address] Care Teams Stemhole Borer Relationship Specialty Start Date End Date Neo Gutierrez MD 175 [facility] [address] [place] [address] PCP - General Internal Medicine 02/07/24
== END 2024-12-28 11:28 | disposition home or self-care (01) ==
LOC: HO.HKA 11:05
PROVIDERS: PCP Nurse Practitioner Family; Visit Provider Internal Medicine Hypertension Specialist
DX: Q61.3 Polycystic kidney, unspecified (principal); I10 Essential (primary) hypertension
CPT/HCPCS: 99214

== ENCOUNTER 2025-01-11 08:44 | Outpatient (REF) | payer OTHER, SELFPAY ==
--- NOTE | ~2025-01-11 | US_ITS ---
EXAMINATION: US RETROPERITONEAL LIMITED (RENAL ONLY) CLINICAL INFORMATION: Polycystic kidney, unspecified. COMPARISON: None available. TECHNIQUE: Real-time imaging of the kidneys. FINDINGS: RIGHT KIDNEY: 18.8 x 8.7 x 10.3 cm (SAG x AP x TRV). There is no hydronephrosis. There are innumerable cysts consistent with polycystic kidney disease. There are several calcifications seen as well. Grossly no solid mass although evaluation is limited on this modality. LEFT KIDNEY: 21.9 x 10.8 x 3.6 cm (SAG x AP x TRV). There is no hydronephrosis. There are innumerable cysts consistent with polycystic kidney disease. There are several calcifications seen as well. Grossly no solid mass although evaluation is limited on this modality. Numerous liver cysts incidentally noted, largest in the right hepatic lobe measuring 2.3 x 1.8 x 2.2 cm. US/US renal BI IMPRESSION: Polycystic kidneys bilaterally. Multiple calcifications bilaterally. No hydronephrosis. Electronically signed by: Kali Barnett MD 01/11/2025 09:51 AM EDT
--- OUTSIDE RECORDS SUMMARY | 2025-01-11 10:07 | XMS_ITS | Clinical Summary ---
Author Organization [facility] Address [address] [place] [address] Phone Care Team Providers Care Assistant Editor Name Role Phone Unavailable Primary Care Provider [...]
--- OUTSIDE RECORDS SUMMARY | 2025-01-11 10:07 | XMS_ITS | Clinical Summary ---
Demographics Address [address] [address] [address] [place] [address] Home Phone Mobile Phone Email Address Preferred Language en Marital Status Single Jain Affiliation Unknown Race Unknown Ethnic Group Not or Lati no Author Organization [facility] Address [address] [place] [address] Phone Care Team Providers Care Microsoft Systems Engineer Name Role Phone Neo Gutierrez MD Primary [...] day. 90 each 3 06/17/2024 Active cloNIDine ([id number]) 0.2 mg/[address] 1 PATCH ONTO [...] (Infanrix) 6wks to less than 7yo 08/13/1996 [id number]-LQX-VXF (Pentacel) 2mo to less than 5yo 12/27/1992,03/28/1992,02/09/1992,10/07 [...] History Date Comments Elevated blood pressure 01/07/2013 DX:[place] blood pressure Family History Medical [...] 2:00 PM EDT Office Visit Nephrology - [place] [address] [place] [address] Raymundo Smith MD 100 [facility] [address] [place] [address] Health Maintenance Due Date Last Done Comments [...] to Health Maintenance Insurance [address] [place] [address] Care Teams Microsoft Systems Engineer Relationship Specialty Start Date End Date Neo Gutierrez MD 175 [facility] [address] [place] [address] PCP - General Internal Medicine 02/07/24
--- OUTSIDE RECORDS SUMMARY | 2025-01-11 10:07 | XMS_ITS | Encounter Summary ---
Author Organization [facility] Address [address] [place] [address] Phone Care Team Providers Care General Road Supervisor Name Role Phone Unavailable Primary Care Provider Unavailabl e Encounter Details Date Type Department Care Team (Late st Contact Info) Description 09/08/2017 [facility]counter [facility] [address] [address] Social History Tobacco Use Types Packs/Day Years [...]
== END 2025-01-11 08:45 | disposition home or self-care (01) ==
LOC: HO.US 08:44
PROVIDERS: PCP Nurse Practitioner Family; Visit Provider Internal Medicine Hypertension Specialist
DX: Q61.3 Polycystic kidney, unspecified (principal)
CPT/HCPCS: 76775

== ENCOUNTER → 2025-01-11 08:49 | Outpatient (BNV) | payer OTHER, SELFPAY | PROVIDERS: PCP Nurse Practitioner Family; Visit Provider Radiology Diagnostic Radiology | DX: Q61.3 Polycystic kidney, unspecified (principal); N28.89 Other specified disorders of kidney and ureter | CPT/HCPCS: 76775 ==

== ENCOUNTER 2025-01-25 08:26 | Outpatient (AMB) | payer OTHER, SELFPAY ==
--- NOTE | 2025-01-25 08:37 | A.OFFPC_ITS ---
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 Allergies cefaclor (From Ceclor) Allergy (Mild, Verified 01/25/25 08:47) hives Medication List - Last Reconciled 01/25/25 by Baldomero Kaiser CNP amlodipine 10 mg PO DAILY 30 days ascorbic acid (vitamin C) 100 mg PO DAILY 30 days cholecalciferol (vitamin D3) 1,250 mcg PO QWEEK ferrous sulfate 325 mg PO DAILY valsartan 320 mg PO DAILY 30 days Tobacco use date assessed: 01/25/25 Dental Screening Dental Screen Date: 01/25/25 Did you have a dental visit in the last 12 months?: No Did you have a dental problem in the last 6 months where you did not have access to dental care?: No Was dental information given to patient?: No HPI HPI Comments History of Present Illness Details 34-year-old male presents for hypertensi on follow-up. He admits to taking his medications as prescribed without adverse reactions. He notes that he has been making healthy lifestyle changes, including low-salt. He drinks alcohol occasionally. He states that his home blood pressure readings average 140-145/90-92. He offers no complaints and denies acute symptoms at this time. [facility] Medical History (Updated 09/29/24 @ 07:06 by Baldomero Kaiser CNP) Anxiety Polycystic kidney disease History of gastroesophageal reflux (GERD) High blood pressure Family History Father Alcohol abuse Maternal Grandmother Diabetes Brother Asthma Social History Housing: Apartment Alcohol intake: current Patient Tobacco Use Status: Never used Tobacco e-Cigarette/Vaping Use: Never Used Second Hand Smoke Exposure: No Substance Use Type: Marijuana service: No Current occupational status: employed Current occupation: [employer] Current occupational exposures/hazards: Yes Cognitive needs: No Hearing needs: No Vision needs: Yes Questionnaire Thrive Questionnaire Date Thrive assessed: 08/18/24 I am a: Patient What is your living situation today?: I have a steady place to live Within the past 12 months, did the food you bought not last and you didn't have the money to get more?: Never true Within the past 12 months, did you worry whether your food would run out before you got money to buy more?: Never true Do you have trouble paying for medicines?: Yes Do you have trouble getting transportation to medical appointments?: No Do you have trouble paying your heating and electricity bill?: No Do you have trouble taking care of your child, family member or friend?: No Do you have trouble with day-to-day activities such as bathing, preparing meals, shopping, managing finances, etc.?: No Are you currently unemployed and looking for a job?: No Are you interested in more education?: No Please select the resources that you would like help with: None Currently or been in a relationship where the following occur: No concerns reported THRIVE Score: 0 JOSE-7 AMB Questionnaire JOSE-7 Date JOSE - 7 assessed: 08/25/24 Source: Developed by Drs. Favian Soler, Cristin Moran, Arnie Ortiz and colleagues, with an educational aleks from [employer]. Review of Systems Const Details: Const Denies chills, Denies fatigue, Denies fever(s), Denies headache(s) and Denies weakness ENT Denies dizziness and Denies headache(s) Card Denies chest pain, Denies lightheadedness, Denies dyspnea and Denies other (Palpitations) Resp Denies cough, Denies dyspnea, Denies wheezing and Denies other ( shortness of breath) GI Denies abdominal pain, Denies melena, Denies hematochezia, Denies change in bowel habits, Denies dyspepsia and Denies nausea Denies hematuria and Denies dysuria Musc Denies abnormal gait, Denies myalgias, Denies arthralgias, Denies numbness and Denies tingling Skin/Breast Denies rash, Denies unusual bruising and Denies wounds Neuro Denies abnormal gait, Denies dizziness, Denies headache(s), Denies memory loss, Denies numbness, Denies Sensory deficit (Neuro), Denies tingling and Denies weakness Psych Denies anxiety, Denies depression, Denies memory loss Endo Denies cold intolerance, Denies fatigue, Denies heat intolerance, Denies polydipsia and Denies polyuria Aller/Immun Denies wheezing Physical exam (Primary Care) Tobacco/Smoking Status: Tobacco use Status Tobacco use date assessed 12/07/24 12/07/24 11:12 Patient Tobacco Use Status Never used Tobacco 12/07/24 11:05 e-Cigarette/Vaping Use Never Used 12/07/24 11:05 Thrive Assessment: Date of Thrive Assessment Date Thrive assessed 08/18/24 12/07/24 11:05 Currently or been in a relationship where the following occur: No concerns reported Const Other: General: no acute distress and well developed Nutritional Appearance: well nourished Orientation/consciousness: patient oriented x3 HENMT Head: Yes normocephalic and Yes atraumatic Eyes General: appearance normal, both eyes and all related structures Pupils: Equal, round and reactive pupils present EOM: EOMs intact bilaterally Resp Effort & Inspection: normal respiratory effort Auscultation: clear to auscultation bilaterally Cardio Rate: regular rate Rhythm: regular rhythm Heart sounds: S1 normal heart sound present, S2 normal heart sound present, no gallops, no murmurs and no rubs GI Palpation (GI): No Abdominal aortic bruit present, Soft to palpation, nontender, No hepatosplenomegaly present and No Rebound tenderness present Auscultation: normal bowel sounds General: Yes no CVA tenderness Back/Spine/Pelvis Back: no CVA tenderness Cervical Spine: cervical ROM normal and No Cervical spine tenderness Thoracic/Lumbar Spine: thoraco-lumbar ROM normal, No pain with thoraco-lumbar ROM, No thoracic spinal tenderness and No lumbar spinal tenderness Extrem General: Yes normal to inspection, No edema and No calf tenderness Skin General: warm and dry. Normal skin color. Normal skin turgor Neuro General: patient oriented x3, gait normal and no focal neuro deficit Cranial nerves: Yes Equal, round and reactive pupils present Cognition (Neuro): normal cognition Gait exam (Neuro): Normal gait present Sensory Exam: No Sensory deficit (Neuro) Psych Appearance: grossly normal Affect: normal affect Attitude: cooperative Thought process: Normal thought process present Coding Level of Care Code Est Pt Level 4 (65217) Diagnoses High blood pressure I10 Iron deficiency anemia D50.9 Vitamin D deficiency E55.9 Assessment & Plan Assessment & Plan (1) High blood pressure: Code(s): I10 - Essential (primary) hypertension Category: Medical Plan: Resting blood pressure is 126/90, slightly above goal of less than 130/80. Continue current treatment regimen. Low-sodium diet encouraged. Continue follow-up with Nephrology as planned. Return in 3 months or sooner with symptoms or concerns. Verbalized understanding and agreed with the plan. (2) Iron deficiency anemia: Code(s): D50.9 - Iron deficiency anemia, unspecified Category: Medical Plan: Continue current treatment regimen. Will check CBC and make changes as needed. Verbalized understanding and agreed with plan. (3) Vitamin D deficiency: Code(s): E55.9 - Vitamin D deficiency, unspecified Category: Medical Plan: Recent vitamin D level is normal. Vitamin D3 25 mcg daily ordered; advised to take as prescribed. Verbalized understanding and agreed with plan. Orders: Orders Complete Blood Count no Diff Today D50.9 - Iron deficiency anemia, unspecified Medications: New cholecalciferol (vitamin D3) 25 mcg PO DAILY 90 tabs 3RF 90 days Discontinued cholecalciferol (vitamin D3) Discontinued Reason: Doctor's Order 1,250 mcg PO QWEEK 12 caps 1RF
[2025-01-25 08:40] VITALS: BP 134/81; PULSE 58; RESP 16; TEMP 36.6; O2SAT 100; BMI 31.0
[2025-01-25 08:50] VITALS: BP 126/90
--- OUTSIDE RECORDS SUMMARY | 2025-01-25 08:56 | XMS_ITS | Encounter Summary ---
Author Organization [facility] Address [address] [place] [phone] Phone Care Team Providers Care Residential Manager Name Role Phone Unavailable Primary Care Provider Unavailabl e Encounter Details Date Type Department Care Team (Late st Contact Info) Description 09/08/2017 [facility]version [facility]counter [facility] [address] [address] Social History Tobacco Use Types Packs/Day Years [...]
--- OUTSIDE RECORDS SUMMARY | 2025-01-25 08:56 | XMS_ITS | Clinical Summary ---
Demographics Address [address] [place] [address] Home Phone Mobile Phone Email Address Preferred Language en Marital Status Single Druze Affiliation Unknown Race Unknown Ethnic Group Not or Lati no Author Organization [facility] Address [address] [place] [address] Phone Care Team Providers Care Steward/Stewardess Dining Room Name Role Phone Neo Gutierrez MD Primary Care Provider [phone] Allergies Active Allergy Reactions Criticality Noted Date [...] day. 90 each 3 06/17/2024 Active cloNIDine ([id number]-1) 0.2 mg/[address] 1 PATCH ONTO [...] disease 06/03/2017 Hypertension, renal disease 07/09/2013 Immunizations Immunization Administration Dates Next Due DTP 02/08/1997, 3,03/28/1992,10/07 DTaP (Infanrix) 6wks to less than 7yo 08/13/1996 [id number] (Pentacel) 2mo to less than 5yo 12/27/1992,03/28/1992,02/09/1992,10/07 [...] History Date Comments Elevated blood pressure 01/07/2013 DX:[place] blood pressure Family History Medical History [...] Care Team (Late st Contact Info) Description 06/23/2025 3:00 PM EST Office Visit Nephrology - [place] [address] [place] [address] Raymundo Smith MD 100 [facility] [address] [place] [address] Health Maintenance Due Date Last Done Comments HPV Vaccines (1 - 3-dose SCDM series) 08/06/2018 DTaP,Tdap,and Td Vaccines (8 - Td or Tdap) 01/05/2019 01/05/2009, 08/11/2001, 02/08/1997, Additional history exists HIV Screening 05/26/2023 Hepatitis C Screening 05/26/2023 Social Influencers of Health Screening 05/26/2023 Depression Screening 04/22/2024 COVID-19 Vaccine ( season) 2024 Influenza Vaccine (#1) 2024 4, 01/10/2010, 01/05/2009 Cholesterol Screening (Lipid Panel) 07/25/2028 07/26/2023 RSV Immunization Adult Patients (1 - 1-dose 75+ series) 08/06/2066 Varicella Vaccines Aged Out 08/20/1992 No longer [...] Relevant to Health Maintenance Insurance * Guarantor: Pravin Hicks Account Type Relation to Patient Date of Phone Billing Address Personal/Family Self 1990 [address] [place] [address] [facility] [address] [place] [address] Care Teams Steward/Stewardess Dining Room Relationship Specialty Start Date End Date Neo Gutierrez MD 175 [facility] [address] [place] [address] PCP - General Internal Medicine 02/07/24
--- OUTSIDE RECORDS SUMMARY | 2025-01-25 08:56 | XMS_ITS | Clinical Summary ---
Author Organization [facility] Address [address] [place] [phone] Phone Care Team Providers Care Licensed Final Expense Agents Name Role Phone Unavailable Primary Care Provider [...] Vaccines (#1) 2024 01/10/2010, 01/05 COVID-19 Vaccine (2024- season) 2024 HIB Vaccines Completed 12/27/1992, 0 [...]
== END 2025-01-25 08:57 | disposition home or self-care (01) ==
LOC: HO.HMCFM 08:27
PROVIDERS: PCP Nurse Practitioner Family; Visit Provider Nurse Practitioner Family
DX: I10 Essential (primary) hypertension (principal); D50.9 Iron deficiency anemia, unspecified; E55.9 Vitamin D deficiency, unspecified

== ENCOUNTER 2025-01-25 08:26 | Outpatient (REF) | payer OTHER, SELFPAY ==
[2025-01-25 11:40] LABS: Hematocrit 39.4 % (42.0-52.0); Hemoglobin 12.6 g/dl (14.0-18.0); Mean Corpuscular HGB Conc 32.0 g/dl (31.0-36.0); Mean Corpuscular Hemoglobin 25.9 pg (27.0-33.0); Mean Corpuscular Volume 80.9 fL (80.0-98.0); NRBC Abs Auto 0.000 X10*3/uL (0.0-0.012); NRBC Pct Auto 0.0 /100WBC (0.0-0.2); Platelet Count 236 X10*3/uL (160-400); Red Blood Count 4.87 X10*6/uL (4.60-5.80); White Blood Count 6.0 X10*3/uL (4.8-10.8)
== END 2025-01-25 08:27 | disposition home or self-care (01) ==
LOC: HO.WFDLDS 08:26
PROVIDERS: PCP Nurse Practitioner Family; Visit Provider Nurse Practitioner Family
DX: I10 Essential (primary) hypertension (principal); D50.9 Iron deficiency anemia, unspecified; E55.9 Vitamin D deficiency, unspecified; Z79.899 Other long term (current) drug therapy
CPT/HCPCS: 36415; 85027